=== PATIENT | male | born 1965 | race Caucasian/White ===

== ENCOUNTER 2016-04-04 12:39 | Inpatient (IN) | payer OTHER ==
[~2016-04-04] VITALS: Ht 170.2 cm; Wt 84.5 kg
[2016-04-04] VITALS (25 sets, daily range): BP systolic 114–143; BP diastolic 68–92; PULSE 77–103; RESP 12–20; O2SAT 98–100
[~2016-04-04 12:39] MED LIST: ATEN25TA PO; Dexamethasone 4 mg/mL Inj ONE; FENT1PAT6 TRANSDERM; Glycopyrrolate 0.2 mg/mL 5 mL Inj ONE; HYDR-4003 PO; Neostigmine 1 mg/mL 5 mL Inj ONE; OXYC10TA8 PO; Ondansetron 2 mg/mL 2 mL Inj ONE; Propofol 10,000 mCg/mL 20 mL Inj ONE; Rocuronium 10 mg/mL 5 mL Inj ONE; Succinylcholine Chloride 20 mg/mL 5 mL Inj ONE
[2016-04-04] MEDS ORDERED: Lactated Ringer's 1,000 ML IV ONE ×2 (14:15→14:32)
[2016-04-04] MEDS ORDERED: metroNIDAZOLE 500 mg/100 mL NS Premix IV ONE (14:39)
[2016-04-04] MEDS ORDERED: CeFAZolin 2 Gm/50 mL D5W Duplex Bag IV ONE (14:39)
--- NOTE | 2016-04-04 14:41 | PCM.HPANE ---
Patient Data Surgeon Admitting Provider: Attending Provider:Fuad Ovalles MD Primary Care Physician:Ibis Other Provider:Ruiz Rodriguez Anesthesia Reason for Visit Anastamotic Leak Ht/WT & BMI Height (Feet): 5 Height (Inches): 7 Weight (Kilograms): 88.8 Body Mass Index 30.00 Allergies Coded Allergies: No Known Drug Allergies (Verified Allergy, Unknown, 03/03/16) Past Anesthesia History Anesthesia History: Denies:: Abnormal Airway (hx exc vocal cord polyp), Anesthesia Reactions, Difficult Intubation, Fam Anesthesia Reaction, Fam Malignant Hypertherm, Malignant Hyperthermia Diabetes History Hx Diabetes?: No MRSA MRSA: No Medications Hypertension Medication: Yes Home Meds Incl Beta Fariba: Yes Previous Beta Fariba Dose >24: Previous Dose <24 Hours Reported Medications Fentanyl 12.5 mcg/hr Patch 1 Each [id number] Mcg TRANSDERM Q3D #10 PATCH Ref 0 03/25/16 oxyCODONE 10 Mg Cmnncj06-03 Mg PO Q4H PRN For Pain #100 TABLET Ref 0 03/25/16 Atenolol 25 Mg Hbhprv90 Mg PO DAILY #30 TABLET Ref 0 01/24/16 Hydrocodone-Acetaminophen 5-325 mg 1 Each Tablet1-2 Tablet PO Q4H PRN For Pain # 100 TABLET Ref 0 12/06/15 Discontinued Reported Medications Trazodone 50 Mg Svzrde62 Mg PO HS Ref 0 04/03/16 Lactulose 10 Gm/15 Ml Relpmmkk39 Ml PO BID PRN For Constipation #480 03/25/16 Ciprofloxacin (Cipro)500 Mg Wcyoiq914 Mg PO BID #8 TABLET Ref 0 03/25/16 Tamsulosin (Flomax)0.4 Mg Capsule0.4 Mg PO DAILY #30 CAPSULE Ref 0 03/25/16 Aspirin EC 500 Mg Tablet.dr500 Mg PO DAILY #1 BOTTLE Ref 0 03/04/16 History History of ENT Problems?: Yes HEENT History: Denies:: Abnormal Airway (hx exc vocal cord polyp) Difficult Intubation Dysphagia Hearing Problem Hx of Heart Problems?: Yes Cardiovascular History: Positive for:: Hypertension (HYPERLIPIDEMIA) Denies:: AICD Atrial Fibrillation Chest Pain Pacemaker Valvular Heart Disease Hx of Respiratory Problem?: No Respiratory History: Denies:: Asthma COPD Cough Hemoptysis Pneumonia Tuberculosis Use of C-PAP Machine Hx Neurologic Problems?: No Neurological History: Denies:: CVA Dementia Multiple Sclerosis Parkinson's Disease Seizures Hx of GI Problems?: Yes Gastrointestinal History: Positive for:: Gastroesphageal Reflux Rectal Bleeding (hx rectal ca- loop ileostomy done) Denies:: Cirrhosis Diverticulitis Hiatal Hernia Hx of Problems?: Yes Other Pertinent History: pt concerned regarding current air in bladder Male Hx: Denies:: Prostate Problems Scrotal Mass Testicular Surgery Skin History: Denies:: History Skin Disorders? Pressure Ulcers Hx Musculoskeletal Problems?: No Musculoskeletal History: Denies:: Joint Replacement Hx of Psycho/Social Problems?: Yes Psycho Social History: Positive for:: Anxiety Hx Depression Hx Surgeries?: Yes (appy, vocal cord polyp, loop ileostomy, portacath) Hx Any Other Health Problems?: Yes Other History: Positive for:: Cancer (RECTAL CA) Denies:: Endocrine Disease Hospitalization Thyroid Disease History Blood Transfusions: Denies:: Blood Transfusions Hx Diabetes: No Hx Alcohol Use: Yes Smoking Status: Current Every Day Smoker Have You Smoked inLast 12 mo: Yes (TRYING TO QUIT) Stop/Bang S-Snoring: Do You Snore Loudly: No T-Tired: feel tired, fatigued: No O-Obsered: Observed not breath: No P-Blood Pressure: treated: Yes B- Body Mass Index > 35 kg/m2: No A- Age over 50: Yes N- Neck Large Circumference: No G- Gender Male: Yes VERENICE Total Score: 3 VERENICE Risk Assessment: High Risk, =/>3 Yes Risk Assessment Category Category 1A: Patient has history of documented sleep apnea, and HAS NOT received any narcotic, sedative or anesthesia administration during this stay. Category 1B: Patient has history of documented sleep apnea, and HAS received any narcotic , sedative or anesthesia administration during this stay Category 2: Patient has SUSPECTED Obstructive Sleep Apnea, and HAS received any narcotic , sedative or anesthesia administration during this stay. Category 3: Patient has SUSPECTED Obstructive Sleep Apnea and HAS NOT received narcotic, sedative or anesthesia administration during this stay. Category 4: Outpatient in Procedural Areas with known sleep apnea or who screen positive for High Risk via the STOP/BANG questionnaire. Exam Exam Vital Signs Vital Signs Date Time Temp Pulse Resp B/P Pulse Ox O2 Delivery O2 Flow Rate FiO2 04/04/16 13:16 36.2 81 18 120/71 98 Room Air General Appearance: Moderate Distress HEENT/AIRWAY: MP 2 Lungs: Clear to Auscultation, Normal Air Movement Heart: Exam Unremarkable, Regular Rate/Rhythm, No Murmurs/Rubs/Gallops Plan Impression Patient chart reviewed, patient interviewed and anesthestic plan with risks, benefits, and alternatives discussed, and informed consent obtained. NPO Status: mn ASA Physical Status: ASA3 Severe Disease Anesthetic Plan: GA Bene/Risks/Altern/Consents: Yes HP Complete Prior to Induction: Yes Other Patient refuses epidural for post-op analgesia. He also currently states that only fentanyl has been effective in treating his pain. He has a fentanyl patch. Osmel Gage MD Apr 04, 2016 14:12
[2016-04-04] MEDS ORDERED: 0.9% Sodium Chloride 1,000 ML IV ONE (15:00)
[2016-04-04] MEDS ORDERED: Lactated Ringer's 500 ML IV PRN (15:32)
[2016-04-04] MEDS ORDERED: Lactated Ringer's 1,000 ML IV SCH (15:32)
[2016-04-04] MEDS ORDERED: MetoCLOpramide 5 mg/mL 2 mL Inj IVPUSH PRN ×2 (15:35→17:45)
[2016-04-04] MEDS ORDERED: EPHEDrine Sulfate 50 mg/mL Inj IM PRN (15:35)
[2016-04-04] MEDS ORDERED: Phenylephrine 10,000 mCg/mL Inj IVPUSH PRN (15:35)
[2016-04-04] MEDS ORDERED: hydrALAZINE 20 mg/mL Inj IVPUSH PRN (15:35)
[2016-04-04] MEDS ORDERED: Labetalol 5 mg/mL 4 mL Inj IV PRN (15:35)
[2016-04-04] MEDS ORDERED: Atropine 0.4 mg/mL Inj IVPUSH PRN (15:35)
[2016-04-04] MEDS ORDERED: hydrOXYzine Inj 25 MG/1 mL SDV IM PRN (15:35)
[2016-04-04] MEDS ORDERED: Ondansetron 2 mg/mL 2 mL Inj IVPUSH PRN (15:35)
[2016-04-04] MEDS ORDERED: EPHEDrine Sulfate 50 mg/mL Inj IVPUSH PRN (15:35)
[2016-04-04] MEDS ORDERED: Bupivacaine Liposome 1.3% 20 mL Inj ONE (15:55)
[2016-04-04] MEDS ORDERED: Acetaminophen IV 1,000 MG in IV Premix 1 EACH IV ONE (16:35)
[2016-04-04] MEDS ORDERED: HYDROmorphone 0.5 mg/0.5 mL iSecure Syringe IVPUSH PRN (17:45)
[2016-04-04] MEDS ORDERED: HYDROmorphone PCA 0.2 mg/mL 30 mL Inj IV PRN (17:45)
--- NOTE | 2016-04-04 17:59 | PCM.ANEP1 ---
Post Anesthesia Phase 1 PACU Phase 1 Assessment Vital Signs Vital Signs Date Time Temp Pulse Resp B/P Pulse Ox O2 Delivery O2 Flow Rate FiO2 04/04/16 13:16 36.2 81 18 120/71 98 Room Air Anesthetic Administered: GA Level of Alertness: Sleepy, easy to arouse BRAGG's with Equal Strength: Yes Pain: No Nausea or Vomiting: No Lungs: Clear to Auscultation, Normal Air Movement Dermatome Level: Full Sensation Osmel Ramachandran MD Apr 04, 2016 17:59
--- NOTE | 2016-04-04 17:59 | PCM.ANEP2 ---
Post Anesthesia Evaluation ASA/CMS Post Anesthesia VS in Patient's Normal Range?: Yes Resp Stable; Airway Patent?: Yes CV Function & Hydration Stable: Yes Mental Status Recovered?: Yes Pain control Satisfactory?: Yes N/V Control Satisfactory?: Yes Osmel Ramachandran MD Apr 04, 2016 17:59
--- NOTE | 2016-04-04 18:09 | PCM.SURGOP ---
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 Garcia on March 04. The anastomosis was tested for leak with air intraoperatively, which was negative. Postoperatively, he did not do well. He had minimal bowel movement in the hospital, but was passing gas. At home, he had to use both hands inside the anus to manipulate tissue to have small amounts of bowel movement. He also developed pneumaturia. Urine culture was negative. He had a leukocytosis of 18,000. He was having low-grade fevers and severe pelvic pain. She had a CT scan of the abdomen and pelvis, which showed free intra-abdominal air, significant bladder air, and several intraloop gas and fluid collections. After discussion of risks and benefits, he agreed to proceed with exploratory laparotomy, possible ileostomy, possible colostomy. Findings: On digital rectal exam, the anastomotic dehiscence could be palpated. Proctoscopy revealed no evidence of proximal descending colon in communication with the rectum. The pelvis was full of stool. There were dense intraloop small bowel adhesions, and several loops of small bowel densely adherent to the bladder, which was very inflamed externally. Upon mobilizing one of the small bowel loops, a chronic appearing sinus tract was appreciated from the small bowel, although no bladder fistula could be definitively identified. Limited small bowel resection was performed with anastomosis. The descending colon was mobilized, and the distal end was resected, creating a new descending colostomy. Procedure Details After smooth induction of general endotracheal anesthesia, he was placed in the supine position with both arms out. A Hale catheter was placed, yielding clear yellow urine. Digital rectal exam was performed. This revealed that approximately 2-3 cm beyond the anal verge, there was an easily palpable firm circumferential ridge of tissue, consistent with the dehisced and inflamed rectal anastomosis. Rigid proctoscopy was performed. The descending colon was not in communication with the rectal stump, and the pelvis was full of stool. The abdomen was then prepped and draped in wide sterile fashion. A procedural pause was performed according to the SCOAP checklist, and all were found to be in agreement. His previous low midline laparotomy was reopened sharply and extended up to the umbilicus. Dissection was carried down with electrocautery until the midline fascia was incised and the peritoneal cavity was entered safely. There was some turbid yellowish fluid in the pelvis. The bladder was palpable, and was very inflamed and abnormal-appearing externally. There were interloop adhesions involving the distal small bowel, which were taken down using a combination of sharp and blunt dissection. As one loop of small bowel was mobilized off the bladder, it was densely adherent, and as it came off the bladder, there were chronic appearing sinus tracts emanating from the small bowel. A clear-cut fistula on the bladder side could not be identified. There was a chronic abscess cavity between loops of small bowel in the right lower quadrant. Blunt dissection down along the left pelvic sidewall revealed a large abscess cavity containing stool. The small bowel was mobilized until a limited small bowel resection could be performed using 2 separate firings of the SHY 75 mm stapler with a blue load. The small bowel was sent for permanent pathology, only approximately 2-3 cm was resected. An anastomosis was created a short while later. In the meantime, pelvic dissection was performed, mostly bluntly, until the descending colon stump was brought out from the pelvis. It was very adherent to the bladder. It is possible that a very small amount of distal descending colon was left on the bladder. The ragged edge of the descending colon was very decompressed, forming what looked like a long sinus tract. The distal descending colon was resected using another firing of the SHY 75 mm stapler with a blue load, and that was sent for permanent pathology. Stool was evacuated from the pelvis, and the pelvis was irrigated and suctioned. Small bowel anastomosis was performed in a [id number] fashion using another firing of the SHY 75 mm stapler with a blue load, and the enterotomies were closed with a TA 60 mm stapler with a blue load. The crotch of the anastomosis was reinforced using a 3-0 silk Lembert suture. The descending colon was able to reach up to the abdominal wall for colostomy without tension. A circular skin incision was made in the left lower quadrant. A muscle-splitting incision was made through the rectus abdominous muscle, and the descending colon was brought out through that incision. The pelvis was again irrigated and suctioned. A 19 Gabonese round ABRIL drain was brought out through separate incision in the right lower quadrant, positioned in the pelvis , and secured to the skin with a 3-0 nylon stitch. The midline fascia was closed using running looped 0 PDS suture 2. Liposomal bupivacaine was instilled into the fascia and subcutaneous tissues. The skin was closed loosely with rancho. The descending colostomy was then matured by excising the staple line using electrocautery. The mucocutaneous junction was approximated using interrupted 0 Vicryl sutures circumferentially. A colostomy appliance was applied. At the end of the case all needle and sponge counts were correct 2. The patient was awakened from anesthesia without difficulty, and taken to the recovery room in satisfactory condition, having tolerated the procedure well. Complications There were no periprocedural complications identified. Surgical Specimen Removed: Yes Specimen sent to Pathology: Yes Surgical Specimen description: Small bowel. Distal descending colon. Anesthetic Plan: GA Grafts, Implants: None Output, Estimated Blood Loss: 100 Blood Administration during mclain: No Drains: ABRIL Drain #1 Catheters: Urethral 2 Way Hale copies to: Remy Garcia MD, Joshua D MD Apr 04, 2016 17:59
[2016-04-04] MEDS: fentaNYL-PF 50 mCg/mL 2 mL Inj IVPUSH PRN ×6 (18:29→19:35)
[2016-04-04] MEDS: HYDROmorphone 1 mg/mL Inj IVPUSH PRN ×5 (18:31→20:21)
[2016-04-04 18:44] LABS: APPEARANCE,URINE CLEAR (CLEAR,HAZY); COLOR,URINE YELLOW (YELLOW); PH,URINE 7.5 (5.0-8.0)
[2016-04-04 18:45] LABS: OCCULT BLOOD,URINE NEGATIVE (NEGATIVE); UROBILINOGEN,URINE NORMAL (NORMAL)
[2016-04-04] MEDS ORDERED: fentaNYL-PF 50 mCg/mL 2 mL Inj ONE (21:25)
[2016-04-04] MEDS: metroNIDAZOLE Inj 500 MG in IV Premix 1 EACH IV SCH ×2 (22:00→23:07)
[2016-04-04] MEDS ORDERED: fentaNYL-PF 50 mCg/mL 2 mL Inj IVPUSH PRN ×2 (22:05)
[2016-04-04] MEDS: Acetaminophen IV 1,000 MG in IV Premix 1 EACH IV SCH (22:12)
[2016-04-04] MEDS: Dextrose 5% Lactated Ringer's 1,000 ML IV SCH (22:18)
[2016-04-04] MEDS: FENTANYL PCA IV PRN (22:30)
[2016-04-04] MEDS: Famotidine Inj 20 MG in IV Premix 1 EACH IV SCH (22:45)
[2016-04-05] VITALS (7 sets, daily range): BP systolic 124–147; BP diastolic 74–83; PULSE 71–82; RESP 16–18; O2SAT 96–100
[2016-04-05] MEDS: Heparin 5,000 Unit/mL Inj SUBQ SCH ×3 (01:38→16:20)
[2016-04-05] MEDS: Acetaminophen IV 1,000 MG in IV Premix 1 EACH IV SCH ×4 (04:10→23:57)
[2016-04-05 06:06] LABS: BASOPHILS % (AUTO) 0.1 % (0-3); EOSINOPHILS % (AUTO) 0 % (0-5); Mean Corpuscular Hemoglobin 30.6 pg (27.0-35.0); Mean Corpuscular Volume 96.6 fL (81-100); Platelet Count 580 bil/L (150-400)
[2016-04-05] MEDS: FENTANYL PCA IV PRN ×3 (07:39→19:38)
[2016-04-05] MEDS: Dextrose 5% Lactated Ringer's 1,000 ML IV SCH ×3 (07:48→18:39)
[2016-04-05] MEDS: metroNIDAZOLE Inj 500 MG in IV Premix 1 EACH IV SCH ×3 (07:49→21:41)
[2016-04-05] MEDS: Famotidine Inj 20 MG in IV Premix 1 EACH IV SCH ×2 (08:16→20:19)
[2016-04-05] MEDS: levoFLOXacin Inj 750 MG in IV Premix 1 EACH IV SCH (08:18)
[2016-04-05] MEDS: Polyethylene Glycol (PEG) 17 Gm Powder PO SCH (08:20)
[2016-04-05] MEDS ORDERED: Influenza (Adult) Vaccine 0.5 mL Syringe IM ONE (08:30)
[2016-04-05] MEDS ORDERED: 0.9% Sodium Chloride 250 ML ONE (10:15)
--- NOTE | 2016-04-05 10:29 | PROG NOTE ---
[address] [address] PROGRESS NOTE PATIENT: HUE BUSTOS : 1965 MR#: [id number] ADMIT: 04/04/2016 JOB ID: [id number] DATE: 04/05/2016 SUBJECTIVE: Postop day one. The patient is sleeping but his tells me that he is feeling well. He is afebrile, not tachycardic, with a normal blood pressure. His drain output has been 160 since the operation. His nasogastric tube remains in place but is not putting much out. Hale is in place and per Dr. Ovalles' note will stay through the weekend. The patient is not examined as he is asleep. His white count is 12.9, his hematocrit is 25.6, electrolytes are normal. Albumin is 2.8. IMPRESSION AND PLAN: Doing well. I will come back later when he is awake and examine him. For now we will leave his NG tube in. Continue him on the levofloxacin and metronidazole that haveu been ordered by Dr. Ovalles.
[2016-04-05] MEDS: Ondansetron 2 mg/mL 2 mL Inj IVPUSH PRN (23:54)
[2016-04-06] VITALS (9 sets, daily range): BP systolic 138–152; BP diastolic 71–83; PULSE 76–87; RESP 16–18; O2SAT 95–99
[2016-04-06] MEDS: Heparin 5,000 Unit/mL Inj SUBQ SCH ×3 (00:20→18:14)
[2016-04-06] MEDS: Dextrose 5% Lactated Ringer's 1,000 ML IV SCH ×3 (02:31→21:15)
[2016-04-06] MEDS: FENTANYL PCA IV PRN ×3 (04:53→21:46)
[2016-04-06] MEDS: metroNIDAZOLE Inj 500 MG in IV Premix 1 EACH IV SCH ×3 (05:44→22:30)
[2016-04-06] MEDS: Polyethylene Glycol (PEG) 17 Gm Powder PO SCH (07:43)
[2016-04-06] MEDS: Famotidine Inj 20 MG in IV Premix 1 EACH IV SCH ×2 (09:05→20:30)
[2016-04-06] MEDS: Ondansetron 2 mg/mL 2 mL Inj IVPUSH PRN (09:18)
[2016-04-06] MEDS: levoFLOXacin Inj 750 MG in IV Premix 1 EACH IV SCH (09:38)
[2016-04-06] MEDS ORDERED: 0.9% Sodium Chloride 250 ML ONE (14:43)
--- NOTE | 2016-04-06 16:00 | PROG NOTE ---
[address] [address] PROGRESS NOTE PATIENT: HUE BUSTOS : 1965 MR#: [id number] ADMIT: 04/04/2016 JOB ID: [id number] DATE: 04/06/2016 SUBJECTIVE: The patient is postop day two, end-colostomy with pelvic cleanout. He remains afebrile, hemodynamically stable. He, and particularly his , are quite anxious about possible things going wrong. He reports some muscle spasm in his right leg and is asking to be medicated for this. He feels that this is related to his chronic back problems that were exacerbated at his last operation during the hospitalization. His nasogastric tube is not putting that much out, but he does not have much output in his ostomy either. OBJECTIVE: His abdomen is soft, mildly distended. Incision is in good shape. LABORATORY DATA: There are no labs today. IMPRESSION AND PLAN: Doing well. I should mention that his Maikol-Caruso drainage is serous and was 170 over the previous 24 hours. There are no signs of complications. He did have a little bit of blood late this morning in his NG tube and I have added pantoprazole to his H2 ulisses. I have reviewed his current anatomical setup with his , discussed options in terms of pulling the NG tube or not, and per his preference we will leave the NG tube in place rather than risk further distention and/or having to have it replaced. I will order some IV Ativan p.r.n. for his muscle spasms. Also his pain control could be better and I will add a small continuous dose through his fentanyl FINISHED GOODS STOCK CLERK. We talked about having a longer-acting narcotic that is not quite so fat-soluble but he and his say that he did not tolerate either Dilaudid or morphine. I will leave him on the fentanyl FINISHED GOODS STOCK CLERK with 10 mcg/hour continuous rate.
[2016-04-06] MEDS ORDERED: Pantoprazole 4 mg/mL 10 mL Inj IVPUSH ONE (16:15)
[2016-04-07] VITALS (7 sets, daily range): BP systolic 146–152; BP diastolic 81–96; PULSE 76–84; RESP 14–18; O2SAT 96–99
[2016-04-07] MEDS: Heparin 5,000 Unit/mL Inj SUBQ SCH ×3 (01:30→16:36)
[2016-04-07] MEDS: FENTANYL PCA IV PRN ×3 (03:50→17:54)
[2016-04-07] MEDS: metroNIDAZOLE Inj 500 MG in IV Premix 1 EACH IV SCH ×3 (04:54→22:32)
[2016-04-07 05:43] LABS: BASOPHILS % (AUTO) 0.4 % (0-3); EOSINOPHILS % (AUTO) 7.7 % (0-5); MONOCYTES % (AUTO) 10.9 % (4-12); Mean Corpuscular Hemoglobin 30.4 pg (27.0-35.0); Mean Corpuscular Volume 95.6 fL (81-100); NEUTROPHILS % (AUTO) 73.1 % (40-74); Platelet Count 558 bil/L (150-400)
[2016-04-07] MEDS: Polyethylene Glycol (PEG) 17 Gm Powder PO SCH (08:02)
[2016-04-07] MEDS: Pantoprazole 4 mg/mL 10 mL Inj IVPUSH SCH (08:28)
[2016-04-07] MEDS: Famotidine Inj 20 MG in IV Premix 1 EACH IV SCH ×2 (08:29→19:49)
[2016-04-07] MEDS: Dextrose 5% Lactated Ringer's 1,000 ML IV SCH ×2 (08:38→19:42)
[2016-04-07] MEDS: levoFLOXacin Inj 750 MG in IV Premix 1 EACH IV SCH (08:40)
--- NOTE | 2016-04-07 11:26 | PCM.PNSURG ---
Subjective Date of Service: Apr 07, 2016 Date of Service: Apr 07, 2016 Visit Information: Reason for Visit Anastamotic Leak Surgery/Surgery Date Post-Op Day # 3 Date of Admission: Apr 04, 2016 at 20:13 Hospital Day #4 Subjective: Patient seen awake in bed with at side. Complains of pain around the area of the incision, especially with coughing. Fentanyl AIR BOATSWAIN with continuous and on demand dosing is keeping him comfortable. No nausea. NG in place, currently nothing by mouth. States he is using the IS. Was able to stand at bedside with a walker but feels very weak. Had some bloody output in the NG tube yesterday, states it is less today after starting IV Protonix. Gastrointestinal: No N/V Pain Management: AIR BOATSWAIN with Basal Postop Activity: Other (as above) Objective Vital Sign- Last 8 Hours Date Time Temp Pulse Resp B/P Pulse Ox O2 Delivery O2 Flow Rate FiO2 04/07/16 05:25 36.4 76 18 152/96 98 Room Air Intake and Output- Last 8 Hour 04/07/16 Cumulative From/Thru 07:00 04/03/16 18:08 - 04/07/16 05:46 Intake Total 1090 ml 9046 ml Output Total 6520 ml Balance 1090 ml 2526 ml Intake Oral 0 ml IV Total 1090 ml 9046 ml Output Urine Total 4650 ml Gastric Drainage Total 1300 ml Drainage Total 370 ml Estimated Blood Loss 200 ml # Bowel Movements 0 General: Alert, Oriented X3, Cooperative, No Acute Distress Lungs: Clear to Auscultation Heart: Regular Rate/Rhythm Abdomen: Soft, Appropriately tender, Non-distended, Ostomy pink & viable ( scant amount of sanguinous fluid in bag) SURGICAL WOUND : Wound General Appearence: Tuyet, Intact, Well Approximated, No Erythema, Other (minimal dried sanguinous discharge on his postsurgical dressing.) Dressing & Drainage Status: Dressing Removed (excellent appearance of lower abdominal midline incision) Wound Drainage Type: ABRIL Drain #1 (serosanguineous drainage present. 130 mL yesterday.) Neuro: Normal Speech Catheters: Urethral 2 Way Hale (with clear yellow urine present.) Result Diagram: 04/07/1651404/07/1615 Additional Information: 1800 mL of urine output today. NG output 1250 mL yesterday, 700 mL today. Mostly dark green liquid, with scant blood tinged fluid after patient coughs. Assessment & Plan Impression Postop day #3 s/p Rigid proctoscopy, exploratory laparotomy, lysis of adhesions , takedown of small bowel to the bladder fistula, small bowel resection with anastomosis, descending colostomy. Other diagnoses: Status post laparoscopically assisted low anterior resection with primary anastomosis and laparoscopic takedown of splenic flexure on 03/04/2016 for stage III rectal cancer status post neoadjuvant chemoradiation therapy. 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 Continue nothing by mouth status and NG tube until decreased output. Discussed with Dr. Garcia. Continue IV fluids. Pain control through AIR BOATSWAIN. Continue IV H2 ulisses and PPI. Continue IS use. Continue activity, to include ambulation, as able. On Hale for At Least 1 Week. A.m. labs ordered. VTE Prophylaxis: Sub-Q Heparin (Unfractionated) Resuscitation Status: CPR: Attempt Resuscitation Stephanie Lezama PA-C Apr 07, 2016 11:26
--- NOTE | 2016-04-07 14:54 | PROG NOTE ---
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 He underwent neoadjuvant chemoradiation, followed by surgical resection with primary reanastomosis on March 04, 2016. Subsequently, he has had severe abdominal and back pain. CT imaging on April 03, 2016, showed moderate pneumoperitoneum with perihepatic gas beneath the right hemidiaphragm and scattered foci of free air throughout the abdomen. There was no definite free fluid. Postsurgical changes of prior low anterior resection with end-to-end anastomosis were identified. To the right at the anastomosis there was suspected extraluminal gas suspicious for a leak. He was emergently hospitalized and underwent surgical management with Dr. Fuad Ovalles on April 04, 2016, for management of colorectal anastomotic dehiscence, pelvic abscess, possible small bowel to bladder fistula, and interloop adhesions. He had lysis of adhesions, takedown of small bowel to the bladder fistula, small bowel resection with anastomosis and descending colostomy. He still has a couple drains with small amount of sanguineous drainage present. Pain control is much improved, although he notes postoperative incisional pain, which he feels is significantly better than his preoperative discomfort. He has been afebrile. He is on broad-spectrum antibiotic coverage with Levaquin 750 mg IV daily and metronidazole 500 mg IV every 8 hours. OBJECTIVE: Vitals: T 36.4, P 76, R 18, BP 152/96. HEENT: Conjunctivae slightly pale. Mucous membranes moist. No oral lesions. Nodes: No adenopathy in the neck or axilla. Chest: Decreased at the bases. Cardiac exam: Regular rate and rhythm with normal S1, S2. Abdomen: Soft. Surgical incision is dressed and clean. Ostomy site in the left lower quadrant does not have any gastrointestinal contents or gas at this time. Extremities: Trace pedal edema, 2+ distal pulses. No calf tenderness. Neuro: Alert and cooperative. Mild generalized weakness but without gross focal deficits. LABORATORIES: WBC 8.1, hemoglobin 8.2, hematocrit 25.8%, platelets 558,000. Sodium 139, potassium 4.0, BUN 5, creatinine 0.65. Glucose 105. AST 7, ALT five, alkaline phosphatase 24. 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 He had a postoperative anastomotic leak, requiring surgical repair three days ago. At exploratory laparotomy, he underwent lysis of adhesions and takedown of small bowel to the bladder fistula and small bowel resection with anastomosis as well as descending colostomy. It is unclear if he can have a future reanastomosis, but I will speak further with the surgical team later this week. Await pathology. He will need further time to heal before scheduled adjuvant chemotherapy with oral Xeloda and intravenous oxaliplatin. At the earliest, anticipate initiation of chemotherapy in 2-3 weeks, but it may be 3-4 weeks depending on the patient's healing process. Given surgical findings, agree with broad-spectrum IV antibiotic coverage as ordered.
[2016-04-07] MEDS ORDERED: 0.9% Sodium Chloride 250 ML ONE (19:38)
[2016-04-08] VITALS (8 sets, daily range): BP systolic 121–152; BP diastolic 78–88; PULSE 74–82; RESP 14–18; O2SAT 95–98
[2016-04-08] MEDS: FENTANYL PCA IV PRN ×2 (00:54→09:13)
[2016-04-08] MEDS: Heparin 5,000 Unit/mL Inj SUBQ SCH ×3 (00:55→17:53)
[2016-04-08] MEDS ORDERED: TPN Per Pharmacist XX ONE (07:00)
[2016-04-08 07:03] LABS: BASOPHILS % (AUTO) 0.3 % (0-3); EOSINOPHILS % (AUTO) 8.7 % (0-5); MONOCYTES % (AUTO) 9.4 % (4-12); Mean Corpuscular Hemoglobin 30.3 pg (27.0-35.0); Mean Corpuscular Volume 94.2 fL (81-100); NEUTROPHILS % (AUTO) 73.4 % (40-74); Platelet Count 569 bil/L (150-400)
[2016-04-08] MEDS: Dextrose 5% Lactated Ringer's 1,000 ML IV SCH (07:54)
[2016-04-08] MEDS: metroNIDAZOLE Inj 500 MG in IV Premix 1 EACH IV SCH ×3 (07:55→22:06)
[2016-04-08] MEDS: Polyethylene Glycol (PEG) 17 Gm Powder PO SCH (08:30)
[2016-04-08] MEDS: Famotidine Inj 20 MG in IV Premix 1 EACH IV SCH (08:43)
[2016-04-08] MEDS: Pantoprazole 4 mg/mL 10 mL Inj IVPUSH SCH (08:43)
[2016-04-08] MEDS: levoFLOXacin Inj 750 MG in IV Premix 1 EACH IV SCH (09:16)
--- NOTE | 2016-04-08 11:01 | PROG NOTE ---
[address] [address] PROGRESS NOTE PATIENT: HUE BUSTOS : 1965 MR#: [id number] ADMIT: 04/04/2016 JOB ID: [id number] DATE: 04/08/2016 SUBJECTIVE: The patient is seen in followup. He continues to feel a little bit better. Today, he feels hungry and thirsty. His pain is mostly controlled. He has not had any nausea. He has not had any anal drainage. He does think there has been a tiny amount of flatus into his colostomy. OBJECTIVE: Temperature 36.7, pulse 82, blood pressure 152/88, saturation 97% on room air. General: He is sitting up in bed, in no acute distress. Chest: Clear. Heart: Regular rate and rhythm. No murmurs. Abdomen is flat and soft. His ABRIL drain has serosanguineous drainage, slightly turbid, 15 cc overnight. His colostomy is intact with no significant output. There is no erythema of the abdominal wall. He is minimally tender to palpation. The Hale catheter has clear yellow urine. Nasogastric tube has a light green drainage. NG output overnight was 400 cc, yesterday was 2025 cc. LABORATORIES: White count is 7.9, hematocrit 26.1, platelets 569. Creatinine 0.62, glucose 102, albumin 2.9. ASSESSMENT AND PLAN: A 50-year-old man with anastomotic leak after low anterior resection for rectal cancer following neoadjuvant chemoradiotherapy. He is now postoperative day four, status post takedown of his anastomosis, descending colostomy, small bowel resection with anastomosis, lysis of adhesions, drainage of pelvic abscess. He is doing well clinically. I am not sure how long it will take for him to be able to eat, but since he is malnourished with an albumin of 2.9 and has not had meaningful protein calorie intake recently, we will start TPN today. His nasogastric tube probably can come out soon, but will wait and see what the output is during the day and make a decision about that later today. LEAD PONY RIDER will be continued. Broad-spectrum antibiotics will be continued. Hale catheter should be continued for seven days.
--- NOTE | 2016-04-08 12:07 | PCM.PHAPRO ---
Progress TPN Management: -pt has been npo x 4 days, s/p takedown of his anastamosis, lysis of adhesions, drainage of pelvic abscess -pt has had significant weight loss over the past year, 28 kg -macronutrients per dietary recommendation will be initiated with Dextrose 175gm , AA 45gm, Lipids 10gm -famotidine ivpb has been discontinued and added to the TPN -IV fluids will be decreased to tko when TPN is hung this evening at 2100 -formula for TPN #1 at 2100 tonight: PARENTERAL NUTRITION ORDERS 1 - Standard Hang Time: 2100 Substrates Total kcal: 875 AMINO ACIDS 45 g DEXTROSE 175 g Total Volume (mL): 1800 LIPIDS 10 g Sterile Water for Injection QS mL To Infuse Over (hrs): 24 Total Volume 1800 mL At at a rate of (mL/hr): 75 Additives Sodium Chloride 100 mEq "typical" daily requirements Sodium Acetate mEq Sodium 50-120mEq Potassium Chloride 50 mEq Potassium 60-120mEq Potassium Phosphate 20 mEq Phosphate 20-40mEq Calcium Gluconate mEq Magnesium 8-32mEq Magnesium Sulfate 8 mEq Calcium 9-22mEq Acetate* 80-120mEq Chloride* 80-120mEq Regular Insulin units *Depending on acid-base status Famotidine 40 mg Multivitamins 1 std dose Insulin Regimen Trace Elements 1 std dose none Thiamine mg Regular Low Intensity Subcut Folic Acid mg Regular Medium Intensity Subcut Ascorbic Acid mg Regular High Intensity Subcut Regular Insulin Infusion Other: Kathy Rasheed [facility] Apr 08, 2016 12:07
[2016-04-08] MEDS: 0.9% Sodium Chloride 250 ML IV SCH (18:17)
[2016-04-08] MEDS ORDERED: Sodium Chloride LOK Flush 10 mL Syringe IVFLUSH PRN ×2 (18:20)
[2016-04-08] MEDS ORDERED: HepLOK Flush 100 unit/mL 5 mL Inj IVFLUSH PRN (18:20)
[2016-04-08] MEDS: Total Parenteral Nutrition 1 BAG IV SCH (21:00)
[2016-04-09] VITALS (10 sets, daily range): BP systolic 130–144; BP diastolic 81–94; PULSE 71–79; RESP 16–18; O2SAT 94–100
[2016-04-09] MEDS: FENTANYL PCA IV PRN ×4 (00:18→18:27)
[2016-04-09] MEDS: Heparin 5,000 Unit/mL Inj SUBQ SCH ×3 (00:37→17:31)
[2016-04-09] MEDS: metroNIDAZOLE Inj 500 MG in IV Premix 1 EACH IV SCH ×3 (05:37→22:09)
[2016-04-09 05:50] LABS: Phosphorus 4.7 mg/dL (2.5-4.9)
[2016-04-09] MEDS: Dextrose 5% Lactated Ringer's 1,000 ML IV SCH (06:36)
[2016-04-09] MEDS: Polyethylene Glycol (PEG) 17 Gm Powder PO SCH (07:55)
[2016-04-09] MEDS: Pantoprazole 4 mg/mL 10 mL Inj IVPUSH SCH (08:06)
[2016-04-09] MEDS: levoFLOXacin Inj 750 MG in IV Premix 1 EACH IV SCH (08:06)
--- NOTE | 2016-04-09 08:21 | PROG NOTE ---
[address] [address] PROGRESS NOTE PATIENT: HUE BUSTOS : 1965 MR#: [id number] ADMIT: 04/04/2016 JOB ID: [id number] DATE: 04/09/2016 SUBJECTIVE: Hue is seen in followup. He continues to feel better. He has no nausea. He is passing some flatus into his colostomy but has not had stool yet. He is complaining of some Hale catheter discomfort and is not sure if his Hale is draining well. OBJECTIVE: Temperature 36.7, pulse 76, blood pressure 130/82, saturation 84% on room air. General: He is resting in bed in no acute distress. HEENT: Nasogastric tube has small amounts of bilious fluid. Chest is clear. Heart: Regular rate and rhythm. No murmurs. Abdomen is soft and flat. His incision is clean with no erythema. His ABRIL drain has serosanguineous drainage. The colostomy is pink with no significant output in the appliance. Bowel tones are present. : Hale catheter has fairly clear yellow urine. ASSESSMENT/PLAN: A 50-year-old man with anastomotic leak after low anterior resection for rectal cancer following neoadjuvant chemoradiotherapy. He is now status post end colostomy, small bowel resection with anastomosis, takedown of bladder fistula. He is doing well clinically. TPN was started last night. I have removed his nasogastric tube this morning. He will be kept n.p.o., but allowed to have ice chips today. TPN should be continued. We will continue the HEALTH ADMINISTRATION TEACHER for now until he has some return of bowel function. The Hale catheter will remain for at least seven days.
--- NOTE | 2016-04-09 09:03 | PROG NOTE ---
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 After neoadjuvant chemoradiation, he underwent surgical resection with primary reanastomosis on March 04, 2016. He was hospitalized with anastomotic leak, and underwent surgical repair on April 04, 2016, including lysis of adhesions, takedown of small bowel to a bladder fistula, small bowel resection with anastomosis and descending colostomy. He still has incisional pain. He has had a small amount of gas in his ostomy bag, but no stool. He has an NG tube. He denies any nausea or vomiting. NG output overnight was minimal, nonbloody. He has been afebrile, and remains on broad-spectrum antibiotic coverage with Levaquin and metronidazole. OBJECTIVE: Vitals: T 36.7, P 76, R 16, BP 130/82. HEENT: Conjunctivae slightly pale. Mucous membranes moist. NG tube in the left nares. Nodes: No adenopathy in the neck or axilla. Chest: Clear. No wheezes. Cardiac exam: Regular rate and rhythm with normal S1, S2. Abdomen: Soft, tender with minimal palpation. Surgical incision intact. Ostomy site in the left lower quadrant appears healthy. There is no gas or fecal contents in the ostomy bag at this time. Extremities: No edema. 2+ distal pulses. No calf tenderness. LABORATORIES: WBC 7.9, hemoglobin 8.4, hematocrit 26.1%, platelets 569,000. BUN 9, creatinine 0.72, glucose 117. 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 He had a T3 N1 lesion with 2/19 mesenteric lymph nodes involved by tumor at the time of surgery in early February. Postoperatively, he developed an anastomotic leak, requiring surgical repair five days ago. He now has an ostomy in the left lower quadrant. This appears healthy. He currently has an NG tube, and is not eating. He has TPN to provide nutritional needs. Monitor electrolytes closely. Await pathology from his recent surgery. We will discuss his case at [facility] today. After he heals, we will schedule him for adjuvant chemotherapy with oral Xeloda and intravenous oxaliplatin, likely 3-4 weeks from now. The patient is currently on broad-spectrum antibiotics given his surgical findings. This will be monitored by the surgical team.
--- NOTE | 2016-04-09 09:10 | PCM.PHAPRO ---
Progress TPN Management: -Macronutrients advanced today per dietary recommendation of AA 85gm, Dextrose 240gm, Lipids 40gm -electrolytes have remained stable overnight -Plan: formula for this evening, Day 2: PARENTERAL NUTRITION ORDERS 2 09-Apr-16 Standard Hang Time: 2100 Substrates Total kcal: 1556 AMINO ACIDS 85 g DEXTROSE 240 g Total Volume (mL): 1900 LIPIDS 40 g Sterile Water for Injection QS mL To Infuse Over (hrs): 24 Total Volume 1900 mL At at a rate of (mL/hr): 79 Additives Sodium Chloride 90 mEq "typical" daily requirements Sodium Acetate mEq Sodium 50-120mEq Potassium Chloride 80 mEq Potassium 60-120mEq Potassium Phosphate mEq Phosphate 20-40mEq Calcium Gluconate mEq Magnesium 8-32mEq Magnesium Sulfate 8 mEq Calcium 9-22mEq Acetate* 80-120mEq Chloride* 80-120mEq Regular Insulin units *Depending on acid-base status Famotidine 40 mg Multivitamins 1 std dose Insulin Regimen Trace Elements 1 std dose none Thiamine mg Regular Low Intensity Subcut Folic Acid mg Regular Medium Intensity Subcut Ascorbic Acid mg Regular High Intensity Subcut Regular Insulin Infusion Other: Kathy Rasheed [facility] Apr 09, 2016 09:10
--- NOTE | 2016-04-09 09:59 | PCM.PHAPRO ---
Progress Addendum: -dietary called and they do not want to advance macronutrients today. will continue with previous orders for TPN #1 Kathy Rasheed [facility] Apr 09, 2016 09:59
--- NOTE | 2016-04-09 16:34 | PATH ---
SURGICAL PATHOLOGY Attending Physician:Jalen Munoz CASE STATUS: Signed Out PATIENT NAME: HUE BUSTOS PID: [id number] : 1965 DATE COLLECTED:04/04/2016 00:00 SPECIMEN: 1: Small Intestine/Bowel, Biopsy 2: Colon, Biopsy CLINICAL HISTORY: A: SMALL BOWEL B: DESCENDING COLON ANASTOMOSIS LEAK FINAL DIAGNOSIS: 1.SMALL BOWEL: SEGMENT OF SMALL BOWEL (3.0 CM RESECTED LENGTH) WITH MODERATE ACTIVE SEROSAL INFLAMMATION. NO EVIDENCE OF MALIGNANCY. 2.DESCENDING COLON: SEGMENT OF LARGE BOWEL (11.0 CM RESECTED LENGTH) WITH MARKED ACTIVE SEROSAL INFLAMMATION. NO EVIDENCE OF MALIGNANCY. ICD10 CODE K65.9 GROSS DESCRIPTION: The specimens are received in formalin, labeled with the patient's name, and sublabeled as the following: (1) small bowel; (2) descending colon. (1) The specimen consists of an unoriented segment of small bowel (length-3.0 cm, resection margin #1 and #2 diameters-2.5 cm) with attached adipose tissue (up to 1.3 cm in depth). The resection margins are received stapled. The mucosa is cuevas with normal folds. The serosa is cuevas smooth and shiny. No nodules masses or lesions are identified. Ink code: black-resection margin. Section code: (1A) resection margin #1, longitudinally sectioned, compliance representative dealer; (1B) resection margin #2, longitudinally sectioned, compliance representative dealer; (1C) small bowel segment, serially sectioned from resection margin #1 to #2, compliance representative dealer. (2) The specimen consists of a an unoriented segment of colon (length-11.2 cm, resection margin #1 and #2 diameters-2.1 cm) and with attached adipose tissue (up to 5.2 cm in depth). The segment is received opened with resection margin #1 stapled and resection margin #2 open. The mucosa is cuevas smooth and shiny with normal folds and partially flat. No nodules, masses or lesions are identified. Ink code: black-resection margin. Section code: (2A) resection margin #1, longitudinally sectioned, compliance representative dealer; (2B) resection margin #2, longitudinally sectioned, compliance representative dealer; (2C-2E) colon segment, serially sectioned from resection margin #1 to #2, compliance representative dealer. 04/08/16 MICRO DESCRIPTION: See diagnosis. ICD-9 CODES: CPT CODES: 1: 53456 2: 98687 Electronically Signed Out Maria Del Carmen Judd MD [facility] [address], [place] [address] Technical component performed at [facility], [facility] [address], [place], [address]
[2016-04-09] MEDS: 0.9% Sodium Chloride 250 ML IV SCH ×2 (17:16→20:56)
[2016-04-09] MEDS: Total Parenteral Nutrition 1 BAG IV SCH (21:02)
[2016-04-10] VITALS (9 sets, daily range): BP systolic 136–169; BP diastolic 80–89; PULSE 80–84; RESP 14–18; O2SAT 96–100
[2016-04-10] MEDS: Heparin 5,000 Unit/mL Inj SUBQ SCH ×4 (00:23→23:38)
[2016-04-10] MEDS: FENTANYL PCA IV PRN ×2 (05:18→13:50)
[2016-04-10] MEDS: metroNIDAZOLE Inj 500 MG in IV Premix 1 EACH IV SCH ×3 (05:31→21:43)
[2016-04-10] MEDS: Dextrose 5% Lactated Ringer's 1,000 ML IV SCH (06:36)
[2016-04-10 07:06] LABS: Magnesium 2.2 mg/dL (1.6-2.6); Phosphorus 4.3 mg/dL (2.5-4.9)
[2016-04-10] MEDS: Polyethylene Glycol (PEG) 17 Gm Powder PO SCH (07:37)
[2016-04-10] MEDS: Pantoprazole 4 mg/mL 10 mL Inj IVPUSH SCH (08:55)
[2016-04-10] MEDS: levoFLOXacin Inj 750 MG in IV Premix 1 EACH IV SCH (08:55)
--- NOTE | 2016-04-10 09:37 | PROG NOTE ---
[address] [address] PROGRESS NOTE PATIENT: HUE BUSTOS : 1965 MR#: [id number] ADMIT: 04/04/2016 JOB ID: [id number] DATE: 04/10/2016 SUBJECTIVE: The patient is seen in followup. He has had a fair amount of flatus through the colostomy over the past 24 hours, but no significant stool. He has no nausea and is tolerating ice chips. He is hungry. His main complaint is bladder discomfort. OBJECTIVE: Temperature 36.4, pulse 80, blood pressure 136/80, saturation 97% on room air. General: He is resting in bed in no acute distress. Chest is clear. Heart: Regular rate and rhythm. Abdomen is soft, nondistended, minimally tender. His incision is clean with no erythema, no drainage. The ABRIL drain has scant serosanguineous drainage. The colostomy has minimal brown liquid in the appliance. Hale catheter has clear yellow urine. LABORATORIES: Creatinine 0.66, glucose 104. ASSESSMENT AND PLAN: A 50-year-old man status post exploratory laparotomy for anastomotic leak with pelvic abscess, now status post small bowel resection with anastomosis and descending colostomy. He is doing well clinically. He will be placed on a clear liquid diet today. The Hale catheter will remain in place for now. Because of his possible bladder fistula, I will arrange for a cystogram through the Hale catheter tomorrow prior to Hale catheter removal. ABRIL drain should be removed just before he leaves the hospital, but we will leave it in place for now. TPN and broad-spectrum antibiotics should be continued. His diet will be slowly advanced over the next several days. If he does well, I anticipate he will be ready for discharge around Thursday or Thursday. Tuyet should be removed from his incision before he leaves the hospital.
--- NOTE | 2016-04-10 09:52 | PROG NOTE ---
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 He was hospitalized after surgery to repair an anastomotic leak. Pain is well controlled. He notes frequent gas in his ostomy bag, and a small amount of brown liquid. His NG tube was removed last night, and he is much more comfortable. He was up walking in the levy, doing 3-4 laps last evening. No shortness of breath or chest pain. No fevers. OBJECTIVE: Vitals: T 36.4, P 80, R 17, BP 136/80. O2 saturation 97% on room air. HEENT: Conjunctivae slightly pale. Mucous membranes moist. No oral lesions. Nodes: No adenopathy in the neck or axilla. Chest: Clear. Cardiac examination: Regular rate and rhythm with normal S1, S2. Abdomen is soft. Mild tenderness. Surgical incision appears clean and dry. Ostomy site in the left lower quadrant has a small amount of brown liquid in the bag. ABRIL drain has about 5 cc of serosanguineous fluid. Extremities: No edema. 2+ distal pulses. No calf tenderness. LABORATORIES: BUN 11, creatinine 0.66, glucose 104. 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 He had a T3 N1 lesion with 2/19 mesenteric lymph nodes involved at the time of surgery in early February. Developed postoperative anastomotic leak, requiring surgical repair six days ago. He now has an ostomy in the left lower quadrant, which will likely be permanent. He has a small amount of liquid stool in the ostomy bag today, suggesting slow bowel recovery. NG tube has been removed. It may be possible to remove his ABRIL drain today. In addition, the patient is eagerly anticipating removal of his Hale catheter. Once stable, he will likely be discharged home. In 3-4 weeks, anticipate adjuvant chemotherapy with oral Xeloda and intravenous oxaliplatin. Antibiotic coverage during the remainder of the patient's hospitalization will be dependent on the surgical team.
--- NOTE | 2016-04-10 10:26 | PCM.PHAPRO ---
Progress TPN Management by Pharmacy: -electrolytes remain stable -macronutrients advanced per dietary today to AA 85gm, Dextrose 240gm, Lipids 40gm -day 3 of inpatient TPN formula for this evening: PARENTERAL NUTRITION ORDERS 3 - Standard Hang Time: 2100 Substrates Total kcal: 1556 AMINO ACIDS 85 g DEXTROSE 240 g Total Volume (mL): 1900 LIPIDS 40 g Sterile Water for Injection QS mL To Infuse Over (hrs): 24 Total Volume 1900 mL At at a rate of (mL/hr): 79 Additives Sodium Chloride 90 mEq "typical" daily requirements Sodium Acetate mEq Sodium 50-120mEq Potassium Chloride 40 mEq Potassium 60-120mEq Potassium Phosphate 10 mEq Phosphate 20-40mEq Calcium Gluconate mEq Magnesium 8-32mEq Magnesium Sulfate 8 mEq Calcium 9-22mEq Acetate* 80-120mEq Chloride* 80-120mEq Regular Insulin units *Depending on acid-base status Famotidine 40 mg Multivitamins 1 std dose Insulin Regimen Trace Elements 1 std dose none Thiamine mg Regular Low Intensity Subcut Folic Acid mg Regular Medium Intensity Subcut Ascorbic Acid mg Regular High Intensity Subcut Regular Insulin Infusion Other: Kathy Rasheed [facility] Apr 10, 2016 10:26
[2016-04-10] MEDS: Total Parenteral Nutrition 1 BAG IV SCH (21:40)
[2016-04-10] MEDS: 0.9% Sodium Chloride 250 ML IV SCH (21:43)
[2016-04-11] VITALS (8 sets, daily range): BP systolic 124–136; BP diastolic 80–84; PULSE 71–77; RESP 14–20; O2SAT 96–98
[2016-04-11] MEDS: FENTANYL PCA IV PRN ×3 (00:44→15:47)
[2016-04-11 05:34] LABS: Magnesium 2.2 mg/dL (1.6-2.6); Phosphorus 4.2 mg/dL (2.5-4.9)
[2016-04-11] MEDS: metroNIDAZOLE Inj 500 MG in IV Premix 1 EACH IV SCH ×3 (06:05→22:18)
[2016-04-11] MEDS: Dextrose 5% Lactated Ringer's 1,000 ML IV SCH (06:36)
[2016-04-11] MEDS: Pantoprazole 4 mg/mL 10 mL Inj IVPUSH SCH (08:08)
[2016-04-11 08:10] LABS: BASOPHILS % (AUTO) 0.3 % (0-3); EOSINOPHILS % (AUTO) 10.3 % (0-5); MONOCYTES % (AUTO) 13.1 % (4-12); Mean Corpuscular Hemoglobin 30.7 pg (27.0-35.0); Mean Corpuscular Volume 95.3 fL (81-100); NEUTROPHILS % (AUTO) 65.5 % (40-74); Platelet Count 503 bil/L (150-400)
[2016-04-11] MEDS: Polyethylene Glycol (PEG) 17 Gm Powder PO SCH (08:30)
[2016-04-11] MEDS: levoFLOXacin Inj 750 MG in IV Premix 1 EACH IV SCH (09:34)
[2016-04-11] MEDS: Heparin 5,000 Unit/mL Inj SUBQ SCH ×2 (09:51→17:52)
--- NOTE | 2016-04-11 10:25 | PCM.PNSURG ---
Subjective Date of Service: Apr 11, 2016 Date of Service: Apr 11, 2016 Visit Information: Reason for Visit Anastamotic Leak Surgery/Surgery Date Post-Op Day # 7 Date of Admission: Apr 04, 2016 at 20:13 Hospital Day #8 Subjective: Good control of pain using fentanyl MARKETING DATABASE ANALYST. Abdominal pain is diminishing. He is tolerating a clear liquid diet with no nausea or vomiting. Is hungry and anxious to start eating food. He had an urge to defecate and did pass a small amount of tissue per rectum last evening with some blood smeared on the toilet paper. Has had 2 episodes of soft brown stool in the colostomy bag. Is ambulating extensively in the hallway. Spoke at length with patient and his regarding his hospital course. Postop General: Other (as above) Gastrointestinal: No N/V, Passing Stool (an colostomy bag) Pain Management: MARKETING DATABASE ANALYST with Basal Postop Activity: Ambulating Independently, Ambulating in Daniels Objective Vital Sign- Last 8 Hours Date Time Temp Pulse Resp B/P Pulse Ox O2 Delivery O2 Flow Rate FiO2 04/11/16 06:12 16 97 04/11/16 03:00 14 96 Intake and Output- Last 8 Hour 04/11/16 Cumulative From/Thru 07:00 04/03/16 18:08 - 04/11/16 06:11 Intake Total 3275 ml 18252 ml Output Total 1665 ml 47108 ml Balance 1610 ml 28 ml Intake Oral 738 ml 1338 ml IV Total 693 ml 82019 ml TPN/PPN 1844 ml 3965 ml Output Urine Total 1500 ml 87866 ml Stool Total 150 ml 150 ml Gastric Drainage Total 5125 ml Drainage Total 15 ml 428 ml Estimated Blood Loss 200 ml # Bowel Movements 0 0 General: Alert, Oriented X3, Cooperative, No Acute Distress Lungs: Clear to Auscultation Heart: Regular Rate/Rhythm Abdomen: Soft, Appropriately tender (improving since previous exam this week), Non-distended, Ostomy (intact, non-edematous, with small amounts of brown liquid in the bag; per patient, he has had the bag emptied twice with brown soft stool) SURGICAL WOUND : Wound General Appearence: [place], Intact, Well Approximated, Incision Healing, No Erythema, No Discharge Wound Drainage Type: ABRIL Drain #1 (cloudy serosanguineous; minimal drainage) Neuro: Normal Speech Catheters: Urethral 2 Way Hale (clear yellow fluid, good output) Result Diagram: 04/11/1644404/11/16444 Diagnostics: Cystogram just taken this morning as well as CT of the pelvis. Report pending. Additional Information: Pathology report: FINAL DIAGNOSIS: 1.SMALL BOWEL: SEGMENT OF SMALL BOWEL (3.0 CM RESECTED LENGTH) WITH MODERATE ACTIVE SEROSAL INFLAMMATION. NO EVIDENCE OF MALIGNANCY. 2.DESCENDING COLON: SEGMENT OF LARGE BOWEL (11.0 CM RESECTED LENGTH) WITH MARKED ACTIVE SEROSAL INFLAMMATION. NO EVIDENCE OF MALIGNANCY. Assessment & Plan Impression Primary diagnoses: Postop day #7 s/p Rigid proctoscopy, exploratory laparotomy, lysis of adhesions , takedown of small bowel to the bladder fistula, small bowel resection with anastomosis, descending colostomy. Other diagnoses: Status post laparoscopically assisted low anterior resection with primary anastomosis and laparoscopic takedown of splenic flexure on 03/04/2016 for stage III rectal cancer status post neoadjuvant chemoradiation therapy. 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 Anticipate advancing to soft diet either tonight or tomorrow. Continue TPN until oral intake is adequate to wean off. Pending results of pelvic CT and cystogram, will decide on Hale removal. Anticipate leaving ABRIL and rancho intact until just prior to discharge. Continue broad-spectrum IV antibiotics. Discontinue continuous dose on the MARKETING DATABASE ANALYST, continue on demand. Continue ostomy training and practice in anticipation of discharge home on Thursday or Thursday if still doing well. AM labs ordered. Pain Management: As above. VTE Prophylaxis: Sub-Q Heparin (Unfractionated) Resuscitation Status: CPR: Attempt Resuscitation Stephanie Lezama PA-C Apr 11, 2016 10:25
--- NOTE | 2016-04-11 11:10 | PCM.CONPHA ---
Objective Vital Signs Date Time Temp Pulse Resp B/P Pulse Ox O2 Delivery O2 Flow Rate FiO2 04/11/16 10:19 16 04/11/16 09:36 36.7 77 19 136/84 98 Room Air 04/11/16 06:12 16 97 04/11/16 03:00 14 96 04/10/16 23:00 16 96 04/10/16 20:05 36.6 83 17 156/88 98 Room Air 04/10/16 19:45 Supplement Oxygen 04/10/16 17:46 36.4 84 18 144/86 97 Room Air 04/10/16 17:00 17 97 04/10/16 14:25 36.3 81 18 169/89 97 Room Air 04/10/16 12:30 14 96 Intake and Output 04/09/16 04/10/16 04/11/16 00:00 00:00 00:00 Intake Total 2797 ml 2567 ml 1438 ml Output Total 3098 ml 2400 ml 2100 ml Balance -301 ml 167 ml -662 ml Weight (Kilograms): 86.900 Height (Feet): 5 Height (Inches): 7.00 Test 04/04/16 18:20 04/08/16 06:10 04/11/16 04:45 Urine Color Yellow (YELLOW) Urine Appearance Clear (CLEAR,HAZY) Urine pH 7.5 (5.0-8.0) Urine Specific [place] 1.015 (1.003-1.035) Urine Protein Negativemg/dL (NEG,TRACE) Urine Glucose (UA) Negativemg/dL (NEGATIVE) Urine Ketones Negativemg/dL (NEGATIVE) Urine Occult Blood Negative (NEGATIVE) Urine Nitrite Negative (NEGATIVE) Urine Bilirubin Negative (NEGATIVE) Urine Urobilinogen Normalmg/dL (NORMAL) Urine Leukocyte Esterase Negative (NEGATIVE) Urine RBC 0-2/hpf (0-2) Urine WBC 0-5/hpf (0-5) Urine Epithelial Cells None/hpf (NONE-MOD) Urine Crystals None seen (NONE SEEN) Urine Bacteria Few/hpf (NONE-FEW) Urine Hyaline Casts None/lpf (NONE) Urine Granular Casts None seen (NONE SEEN) Urine Waxy Casts None seen (NONE SEEN) Urine Red Blood Cell Casts None seen (NONE SEEN) Urine White Blood Cell Casts None seen (NONE SEEN) Urine Mucus None seen (None Seen) Urine Trichomonas None seen (NONE SEEN) Urine Yeast None (NONE SEEN) Urinalysis Comment None Urine Culture Reflexed Not indicated Total Bilirubin 0.2mg/dL (0.0-1.2) Aspartate Amino Transf (AST/SGOT) 9U/L (0-50) Alanine Aminotransferase (ALT/SGPT) 6U/L (0-44) Alkaline Phosphatase 23U/L (25-150) Total Protein 5.5g/dL (6.4-8.4) Albumin 2.9g/dL (3.4-5.0) White Blood Count 7.6th/mm3 (3.8-10.1) Red Blood Count 2.77mil/mm3 (4.40-5.80) Hemoglobin 8.5g/dL (13.8-17.2) Hematocrit 26.4% (41.0-50.0) Mean Corpuscular Volume 95.3fL (81-100) Mean Corpuscular Hemoglobin 30.7pg (27.0-35.0) Mean Corpuscular Hemoglobin Concent 32.2% (32.0-37.0) Red Cell Distribution Width 14.9% (12.3-15.4) Platelet Count 503bil/L (150-400) Neutrophils (%) (Auto) 65.5% (40-74) Lymphocytes (%) (Auto) 10.3% (14-46) Monocytes (%) (Auto) 13.1% (4-12) Eosinophils (%) (Auto) 10.3% (0-5) Basophils (%) (Auto) 0.3% (0-3) Sodium Level 138mEq/L (134-144) Potassium Level 4.1mEq/L (3.5-5.2) Chloride Level 104mEq/L (97-108) Carbon Dioxide Level 24mmol/L (18-29) Blood Urea Nitrogen 12mg/dL (6-24) Creatinine 0.71mg/dL (0.76-1.27) Estimat Glomerular Filtration Rate 125mL/min (>59) Glucose Level 101mg/dL (60-99) Calcium Level 8.4mg/dL (8.5-10.1) Phosphorus Level 4.2mg/dL (2.5-4.9) Magnesium Level 2.2mg/dL (1.6-2.6) Assessment/Plan Assessment/Plan PARENTERAL NUTRITION ORDERS 4 - Standard Hang Time: 2100 Substrates Total kcal: 1556 AMINO ACIDS 110 g DEXTROSE 320 g Total Volume (mL): 1900 LIPIDS 50 g Sterile Water for Injection QS mL To Infuse Over (hrs): 24 Total Volume 1900 mL At at a rate of (mL/hr): 79 Additives Sodium Chloride p mEq "typical" daily requirements Sodium Acetate mEq Sodium 50-120mEq Potassium Chloride 40 mEq Potassium 60-120mEq Potassium Phosphate 10 mEq Phosphate 20-40mEq Calcium Gluconate mEq Magnesium 8-32mEq Magnesium Sulfate 8 mEq Calcium 9-22mEq Acetate* 80-120mEq Chloride* 80-120mEq Regular Insulin units *Depending on acid-base status Famotidine 40 mg Multivitamins 1 std dose Insulin Regimen Trace Elements 1 std dose none Thiamine mg Regular Low Intensity Subcut Folic Acid mg Regular Medium Intensity Subcut Ascorbic Acid mg Regular High Intensity Subcut Regular Insulin Infusion Other: Special Instructions: To be infused via central line only. For delay or inturruption of TPN contact the pharmacist for alternative replacement solution. Signature Date: Salvador Davis [address] [place] [address] Josemanuel Tompkins Apr 11, 2016 11:10
--- NOTE | 2016-04-11 11:56 | DRSVH ---
PROCEDURE: X-RAY CYSTOGRAM IN RADIOLOGY ([id number]) INDICATIONS: bladder fistula, 7 days postop with Hale in place COMPARISON: [facility], CT, CT PELVIS WO CON, 04/11/2016, 9:01. FINDINGS: KUB: Preprocedural executive wellness programs director film demonstrates a normal bowel gas pattern. A Hale catheter is present. No suspicious abdominal calcifications. Bony structures are unremarkable. ABRIL surgical drain is no ara. There midline surgical clips and residual oral contrast material within the colon Bladder: The filled bladder appears normal in contour. Early images demonstrate no bladder wall tra beculations. No vesicoureteral reflux or to contrast extravasation. IMPRESSION: No radiographically visualized evidence of fistula Dictated by: Alfredo Cardenas M.D. on 04/11/2016 at 11:55 Approved by: Alfredo Cardenas M.D. on 04/11/2016 at 11:55
--- NOTE | 2016-04-11 17:20 | DRSVH ---
PROCEDURE: CT PELVIS WITHOUT CONTRAST ([id number]) INDICATIONS: POST CYSTOGRAM IN XRAY/ADD PER DR. HIGUERA/PGD JON TECHNIQUE: After the administration of oral contrast and introduction of diluted contrast material into the urin cleo bladder via Hale catheter, 5 mm thick sections acquired from the iliac crests to the symphysis. 5 mm coronal and sagittal reformats were then performed. For radiation dose reduction, the followin g was used: automated exposure control, adjustment of mA and/or kV according to patient size. COMPARISON: [facility], CR, XR CYSTOGRAM IN DEPT, 04/11/2016, 8:46. Formerly [facility] al, CT, CT ABD PELVIS W CON, 04/03/2016, 10:06. FINDINGS: Image quality: Excellent. Peritoneum and bowel: No free air identified in the pelvis. Postsurgical changes compatible with lef t lower quadrant colostomy formation and placement of a surgical drain in the presacral space in the lower pelvis noted interval since the prior examination. Bowel loops demonstrate normal wall thicknes s and caliber. No free fluid or air. Genitourinary: Bladder wall thickness is normal. No definite cephalization of contrast material from the urinary bladder is noted. No definite fistulous connection with either small or large loops of b owel identified. Nodes and vessels: No iliac, pelvic, or inguinal adenopathy by size criteria. Iliac vessels demonst rate normal size. Bones: No suspicious bony lesions. Pelvic ring and hip joints appear intact. Miscellaneous: No inguinal hernias. IMPRESSION: 1. Status post left lower quadrant colostomy and placement of presacral, pelvic surgical drain. 2. No definite enterovesicular or colovesicular fistula identified. Dictated by: Marlene Palma MD, PhD on 04/11/2016 at 9:52 Approved by: Marlene Palma MD, PhD on 04/11/2016 at 17:19
[2016-04-11] MEDS: TPN Per Pharmacist XX SCH (21:00)
[2016-04-11] MEDS: Total Parenteral Nutrition 1 BAG IV SCH (21:56)
[2016-04-12 01:30] VITALS: RESP 20; O2SAT 98
[2016-04-12] MEDS: FENTANYL PCA IV PRN ×2 (02:17→14:42)
[2016-04-12 05:55] VITALS: BP 129/82; PULSE 79; RESP 20; O2SAT 98
[2016-04-12] MEDS: Dextrose 5% Lactated Ringer's 1,000 ML IV SCH (06:36)
[2016-04-12] MEDS: Pantoprazole 4 mg/mL 10 mL Inj IVPUSH SCH (07:42)
[2016-04-12] MEDS: metroNIDAZOLE Inj 500 MG in IV Premix 1 EACH IV SCH ×3 (07:44→21:46)
[2016-04-12] MEDS: Polyethylene Glycol (PEG) 17 Gm Powder PO SCH (08:30)
[2016-04-12] MEDS: Heparin 5,000 Unit/mL Inj SUBQ SCH ×3 (09:50→16:08)
[2016-04-12] MEDS: levoFLOXacin Inj 750 MG in IV Premix 1 EACH IV SCH (10:15)
[2016-04-12 11:21] LABS: BASOPHILS % (AUTO) 0.2 % (0-3); EOSINOPHILS % (AUTO) 5.1 % (0-5); MONOCYTES % (AUTO) 9.5 % (4-12); Mean Corpuscular Hemoglobin 30.1 pg (27.0-35.0); Mean Corpuscular Volume 94.6 fL (81-100); NEUTROPHILS % (AUTO) 78.5 % (40-74); Platelet Count 516 bil/L (150-400)
--- NOTE | 2016-04-12 11:22 | PCM.PNSURG ---
Subjective Date of Service: Apr 12, 2016 Date of Service: Apr 12, 2016 Visit Information: Reason for Visit Anastamotic Leak Surgery/Surgery Date Post-Op Day # 8 Date of Admission: Apr 04, 2016 at 20:13 Hospital Day #9 Subjective: Abdominal pain tolerable with PLY BANDER. Did well overnight with continuous dose of fentanyl 5 g per hour. Tolerating soft diet with no nausea, vomiting, increasing abdominal pain. Continues to feel hungry. Has not passed any more tissue or fluid per rectum. Is ambulating in the hallway. Is excited to have Hale removed. Afebrile and hemodynamically stable. Gastrointestinal: Good Appetite, Tolerating Oral Feedings, No N/V, Passing Stool (colostomy bag; 150 mL yesterday) Pain Management: PO, PLY BANDER with Basal Postop Activity: Ambulating Independently, Ambulating in Daniels Objective Vital Sign- Last 8 Hours Date Time Temp Pulse Resp B/P Pulse Ox O2 Delivery O2 Flow Rate FiO2 04/12/16 05:55 36.8 79 20 129/82 98 Room Air Intake and Output- Last 8 Hour 04/12/16 Cumulative From/Thru 07:00 04/03/16 18:08 - 04/12/16 06:54 Intake Total 600 ml 78142 ml Output Total 2020 ml 51317 ml Balance -1420 ml -479 ml Intake Oral 600 ml 2838 ml IV Total 61822 ml TPN/PPN 5019 ml Output Urine Total 2000 ml 68608 ml Stool Total 0 ml 150 ml Gastric Drainage Total 5125 ml Drainage Total 20 ml 448 ml Estimated Blood Loss 200 ml # Bowel Movements 0 General: Alert, Oriented X3, Cooperative, No Acute Distress Lungs: Clear to Auscultation Heart: Regular Rate/Rhythm Abdomen: Soft, Appropriately tender, Non-distended, Normoactive bowel tones Neuro: Normal Speech Catheters: Urethral 2 Way Hale Result Diagram: 04/11/165 04/11/165 Lab & Micro Results: CBC and CMP pending. Diagnostics: Cystogram and pelvic CT yesterday showed no fistula. 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 Other diagnoses: Status post laparoscopically assisted low anterior resection with primary anastomosis and laparoscopic takedown of splenic flexure on 03/04/2016 for stage III rectal cancer status post neoadjuvant chemoradiation therapy. 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 Continue TPN until oral intake is adequate to wean off. DC Hale today. Continue Flomax. Straight cath if necessary (PVR >300cc) Anticipate leaving ABRIL and rancho intact until just prior to discharge. Continue broad-spectrum IV antibiotics. AM labs ordered. Pain Management: Encourage use of by mouth oxycodone 10 mg every 4 hours. Try to decrease reliance on PLY BANDER. VTE Prophylaxis: Sub-Q Heparin (Unfractionated) Resuscitation Status: CPR: Attempt Resuscitation Stephanie Lezama PA-C Apr 12, 2016 11:21
[2016-04-12 11:47] LABS: Magnesium 2.2 mg/dL (1.6-2.6); Phosphorus 3.8 mg/dL (2.5-4.9)
--- NOTE | 2016-04-12 12:08 | PCM.PHAPRO ---
Progress PARENTERAL NUTRITION ORDERS 6 12-Apr-16 Standard Hang Time: 2100 Substrates Total kcal: 2027 AMINO ACIDS 110 g DEXTROSE 320 g Total Volume (mL): 1900 LIPIDS 50 g Sterile Water for Injection QS mL To Infuse Over (hrs): 24 Total Volume 1900 mL At at a rate of (mL/hr): 79 Additives Sodium Chloride 90 mEq "typical" daily requirements Sodium Acetate mEq Sodium 50-120mEq Potassium Chloride 40 mEq Potassium 60-120mEq Potassium Phosphate 10 mEq Phosphate 20-40mEq Calcium Gluconate mEq Magnesium 8-32mEq Magnesium Sulfate 8 mEq Calcium 9-22mEq Acetate* 80-120mEq Chloride* 80-120mEq Regular Insulin units *Depending on acid-base status Famotidine 40 mg Multivitamins 1 std dose Insulin Regimen Trace Elements 1 std dose none Thiamine mg Regular Low Intensity Subcut Folic Acid mg Regular Medium Intensity Subcut Ascorbic Acid mg Regular High Intensity Subcut Regular Insulin Infusion Other: Special Instructions: To be infused via central line only. For delay or inturruption of TPN contact the pharmacist for alternative replacement solution. Josemanuel Tompkins Apr 12, 2016 12:08
[2016-04-12 14:45] VITALS: RESP 16; O2SAT 96
[2016-04-12 16:00] VITALS: BP 121/83; PULSE 76; RESP 18; O2SAT 99
[2016-04-12] MEDS: 0.9% Sodium Chloride 250 ML IV SCH (18:17)
[2016-04-12] MEDS: TPN Per Pharmacist XX SCH (21:00)
[2016-04-12] MEDS: Total Parenteral Nutrition 1 BAG IV SCH (21:14)
[2016-04-12 21:25] VITALS: BP 115/73; PULSE 69; RESP 20; O2SAT 99
[2016-04-13] MEDS: Heparin 5,000 Unit/mL Inj SUBQ SCH ×2 (01:04→07:51)
[2016-04-13] MEDS: metroNIDAZOLE Inj 500 MG in IV Premix 1 EACH IV SCH (05:51)
[2016-04-13 06:15] LABS: BASOPHILS % (AUTO) 0.3 % (0-3); EOSINOPHILS % (AUTO) 7.4 % (0-5); MONOCYTES % (AUTO) 12.8 % (4-12); Mean Corpuscular Hemoglobin 30.5 pg (27.0-35.0); Mean Corpuscular Volume 96.3 fL (81-100); NEUTROPHILS % (AUTO) 68.8 % (40-74); Platelet Count 488 bil/L (150-400)
[2016-04-13 06:20] VITALS: BP 126/77; PULSE 72; RESP 20; O2SAT 97
[2016-04-13] MEDS: Dextrose 5% Lactated Ringer's 1,000 ML IV SCH (06:36)
[2016-04-13 06:40] LABS: Magnesium 2.2 mg/dL (1.6-2.6); Phosphorus 3.9 mg/dL (2.5-4.9)
[2016-04-13] MEDS: Pantoprazole 4 mg/mL 10 mL Inj IVPUSH SCH (07:48)
[2016-04-13] MEDS: levoFLOXacin Inj 750 MG in IV Premix 1 EACH IV SCH (07:50)
[2016-04-13 07:57] VITALS: RESP 16; O2SAT 96
[2016-04-13] MEDS: Polyethylene Glycol (PEG) 17 Gm Powder PO SCH (08:30)
[2016-04-13 09:14] VITALS: BP 131/78; PULSE 83; O2SAT 98
--- NOTE | 2016-04-13 09:37 | PCM.CONPHA ---
Objective Vital Signs Date Time Temp Pulse Resp B/P Pulse Ox O2 Delivery O2 Flow Rate FiO2 04/13/16 09:14 36.8 83 131/78 98 Room Air 04/13/16 07:57 16 96 04/13/16 06:20 36.4 72 20 126/77 97 Room Air 04/12/16 21:25 36.6 69 20 115/73 99 Room Air 04/12/16 16:00 36.5 76 18 121/83 99 Room Air 04/12/16 14:45 16 96 Intake and Output 04/11/16 04/12/16 04/13/16 00:00 00:00 00:00 Intake Total 1438 ml 5688 ml 1959 ml Output Total 2100 ml 3165 ml 3280 ml Balance -662 ml 2523 ml -1321 ml Weight (Kilograms): 84.500 Height (Feet): 5 Height (Inches): 7.00 Test 04/04/16 18:20 04/13/16 05:03 Urine Color Yellow (YELLOW) Urine Appearance Clear (CLEAR,HAZY) Urine pH 7.5 (5.0-8.0) Urine Specific [place] 1.015 (1.003-1.035) Urine Protein Negativemg/dL (NEG,TRACE) Urine Glucose (UA) Negativemg/dL (NEGATIVE) Urine Ketones Negativemg/dL (NEGATIVE) Urine Occult Blood Negative (NEGATIVE) Urine Nitrite Negative (NEGATIVE) Urine Bilirubin Negative (NEGATIVE) Urine Urobilinogen Normalmg/dL (NORMAL) Urine Leukocyte Esterase Negative (NEGATIVE) Urine RBC 0-2/hpf (0-2) Urine WBC 0-5/hpf (0-5) Urine Epithelial Cells None/hpf (NONE-MOD) Urine Crystals None seen (NONE SEEN) Urine Bacteria Few/hpf (NONE-FEW) Urine Hyaline Casts None/lpf (NONE) Urine Granular Casts None seen (NONE SEEN) Urine Waxy Casts None seen (NONE SEEN) Urine Red Blood Cell Casts None seen (NONE SEEN) Urine White Blood Cell Casts None seen (NONE SEEN) Urine Mucus None seen (None Seen) Urine Trichomonas None seen (NONE SEEN) Urine Yeast None (NONE SEEN) Urinalysis Comment None Urine Culture Reflexed Not indicated White Blood Count 8.7th/mm3 (3.8-10.1) Red Blood Count 2.95mil/mm3 (4.40-5.80) Hemoglobin 9.0g/dL (13.8-17.2) Hematocrit 28.4% (41.0-50.0) Mean Corpuscular Volume 96.3fL (81-100) Mean Corpuscular Hemoglobin 30.5pg (27.0-35.0) Mean Corpuscular Hemoglobin Concent 31.7% (32.0-37.0) Red Cell Distribution Width 15.2% (12.3-15.4) Platelet Count 488bil/L (150-400) Neutrophils (%) (Auto) 68.8% (40-74) Lymphocytes (%) (Auto) 9.9% (14-46) Monocytes (%) (Auto) 12.8% (4-12) Eosinophils (%) (Auto) 7.4% (0-5) Basophils (%) (Auto) 0.3% (0-3) Sodium Level 138mEq/L (134-144) Potassium Level 4.3mEq/L (3.5-5.2) Chloride Level 104mEq/L (97-108) Carbon Dioxide Level 23mmol/L (18-29) Blood Urea Nitrogen 16mg/dL (6-24) Creatinine 0.67mg/dL (0.76-1.27) Estimat Glomerular Filtration Rate 133mL/min (>59) Glucose Level 102mg/dL (60-99) Calcium Level 8.9mg/dL (8.5-10.1) Phosphorus Level 3.9mg/dL (2.5-4.9) Magnesium Level 2.2mg/dL (1.6-2.6) Total Bilirubin 0.2mg/dL (0.0-1.2) Aspartate Amino Transf (AST/SGOT) 11U/L (0-50) Alanine Aminotransferase (ALT/SGPT) 11U/L (0-44) Alkaline Phosphatase 29U/L (25-150) Total Protein 6.3g/dL (6.4-8.4) Albumin 3.1g/dL (3.4-5.0) Assessment/Plan Assessment/Plan PARENTERAL NUTRITION ORDERS 7 - Standard Hang Time: 2100 Substrates Total kcal: 1014 AMINO ACIDS 55 g DEXTROSE 160 g Total Volume (mL): 1900 LIPIDS 25 g Sterile Water for Injection QS mL To Infuse Over (hrs): 24 Total Volume 1900 mL At at a rate of (mL/hr): 79 Additives Sodium Chloride 90 mEq "typical" daily requirements Sodium Acetate mEq Sodium 50-120mEq Potassium Chloride 40 mEq Potassium 60-120mEq Potassium Phosphate 10 mEq Phosphate 20-40mEq Calcium Gluconate mEq Magnesium 8-32mEq Magnesium Sulfate 8 mEq Calcium 9-22mEq Acetate* 80-120mEq Chloride* 80-120mEq Regular Insulin units *Depending on acid-base status Famotidine 40 mg Multivitamins 1 std dose Insulin Regimen Trace Elements 1 std dose none Thiamine mg Regular Low Intensity Subcut Folic Acid mg Regular Medium Intensity Subcut Ascorbic Acid mg Regular High Intensity Subcut Regular Insulin Infusion Other: Special Instructions: To be infused via central line only. For delay or inturruption of TPN contact the pharmacist for alternative replacement solution. Macronutrients reduced per nutrition. Josemanuel Tompkins Apr 13, 2016 09:37
--- NOTE | 2016-04-13 10:24 | PCM.PNSURG ---
Subjective Date of Service: Apr 13, 2016 Date of Service: Apr 13, 2016 Visit Information: Reason for Visit Anastamotic Leak Surgery/Surgery Date Post-Op Day # 9 Date of Admission: Apr 04, 2016 at 20:13 Hospital Day #10 Subjective: Afebrile overnight, hemodynamically stable. Patient seen sitting up in bed. Doing well. Has not been using [facility] SURGE[facility] since midnight. Pain well-controlled on oral oxycodone. Tolerating full trays of food. No nausea, vomiting, or abdominal pain after eating. States he ate a large meal last night and did quite well. Doing well with Hale discontinued. Has not passed any more tissue or fluid per rectum. Wishes to go home today. Feels comfortable with independent ostomy care. Postop General: No Complaints Gastrointestinal: Good Appetite, Tolerating Oral Feedings, No N/V, Passing Flatus (per Colostomy bag), Passing Stool (per colostomy bag, states he just emptied the bag which was half full.) Pain Management: PO (oxycodone 10 mg) Postop Activity: Ambulating Independently Objective Vital Sign- Last 8 Hours Date Time Temp Pulse Resp B/P Pulse Ox O2 Delivery O2 Flow Rate FiO2 04/13/16 09:14 36.8 83 131/78 98 Room Air 04/13/16 07:57 16 96 04/13/16 06:20 36.4 72 20 126/77 97 Room Air Intake and Output- Last 8 Hour 04/13/16 Cumulative From/Thru 07:00 04/03/16 18:08 - 04/13/16 06:22 Intake Total 3052 ml 84778 ml Output Total 1605 ml 04806 ml Balance 1447 ml 1067 ml Intake Oral 600 ml 3838 ml IV Total 672 ml 28206 ml TPN/PPN 1780 ml 6799 ml Output Urine Total 1600 ml 25164 ml Stool Total 0 ml 150 ml Gastric Drainage Total 5125 ml Drainage Total 5 ml 463 ml Estimated Blood Loss 200 ml # Voids 5 5 # Bowel Movements 0 General: Alert, Oriented X3, Cooperative, No Acute Distress Lungs: Clear to Auscultation Heart: Regular Rate/Rhythm Abdomen: Soft, Non-tender, Non-distended, Normoactive bowel tones, Ostomy pink & viable SURGICAL WOUND : Wound General Appearence: Tuyet, Intact, Well Approximated, Incision Healing, No Erythema, No Discharge Wound Drainage Type: ABRIL Drain #1 (5 mL of serosanguineous drainage today) Extremities: Warm, Thigh&Calf Soft/Nontender, No Cord to Palpation Neuro: Normal Speech Catheters: None Result Diagram: 04/13/1650204/13/16 050 Assessment & Plan Impression Primary diagnoses: Postop day #9 s/p Rigid proctoscopy, exploratory laparotomy, lysis of adhesions , 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 Other diagnoses: Status post laparoscopically assisted low anterior resection with primary anastomosis and laparoscopic takedown of splenic flexure on 03/04/2016 for stage III rectal cancer status post neoadjuvant chemoradiation therapy. 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 DC ABRIL drain. DC TPN, as oral intake is adequate. Discharge home today. Continue oral antibiotics through 04/18/2016 for a total course of 14 days. Follow-up as outpatient with wound care clinic for ostomy care. Follow-up with Dr. Ovalles Thursday 1:15 PM. Reviewed with patient and warning signs to watch for, and expected postoperative course. Discussed in detail discharge medications. Pain Management: By mouth oxycodone VTE Prophylaxis: Sub-Q Heparin (Unfractionated) (inpatient), Sub-Q Enoxaparin ( at home on discharge) Resuscitation Status: CPR: Attempt Resuscitation copies to: Fuad Ovalles MD; Marcial Rodríguez MD, Danielle B PA-C Apr 13, 2016 10:24
--- NOTE | 2016-04-13 10:42 | PCM.DISURG ---
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 Other diagnoses: Status post laparoscopically assisted low anterior resection with primary anastomosis and laparoscopic takedown of splenic flexure on 03/04/2016 for stage III rectal cancer status post neoadjuvant chemoradiation therapy. 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 Replace gauze as needed. Hygiene: May shower Follow Up Plan Follow Up Plan Follow-up appointment with Dr. Ovalles at the [facility] outpatient general surgery clinic on 04/16/2016 at 1:15 PM. Please schedule a follow-up appointment with Dr. Rodríguez in 2 weeks. Call wound clinic on 04/14/2016 for a follow-up appointment for ostomy care. Call your provider for: Fever, Chills, Shortness of breath, Increasing abdominal pain, Nausea, Vomiting, Wound redness, Increasing wound pain, Discharge @ incision, pus discharge Stephanie Lezama PA-C Apr 13, 2016 10:42
[2016-04-13] MEDS ORDERED: LEVO750T39 PO (11:02)
[2016-04-13] MEDS ORDERED: Acetaminophen PO (11:02)
[2016-04-13] MEDS ORDERED: LORA0.5T PO (11:02)
[2016-04-13] MEDS ORDERED: OXYC5TAB72 PO (11:02)
[2016-04-13] MEDS ORDERED: TAMS0.4C98 PO (11:02)
[2016-04-13] MEDS ORDERED: METR500T19 PO (11:02)
[2016-04-13] MEDS ORDERED: ENOX40DI8 SUBQ (11:02)
[2016-04-13] MEDS ORDERED: PANT40TA3 PO (11:02)
--- NOTE | 2016-04-13 11:48 | PCM.DC.SUR ---
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 Other diagnoses: Status post laparoscopically assisted low anterior resection with primary anastomosis and laparoscopic takedown of splenic flexure on 03/04/2016 for stage III rectal cancer status post neoadjuvant chemoradiation therapy. 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 Garcia on March 04. The anastomosis was tested for leak with air intraoperatively, which was negative. Postoperatively, he did not do well. He had minimal bowel movement in the hospital, but was passing gas. At home, he had to use both hands inside the anus to manipulate tissue to have small amounts of bowel movement. He also developed pneumaturia. Urine culture was negative. He had a leukocytosis of 18,000. He was having low-grade fevers and severe pelvic pain. He had a CT scan of the abdomen and pelvis, which showed free intra-abdominal air, significant bladder air, and several intraloop gas and fluid collections. After discussion of risks and benefits, he agreed to proceed with exploratory laparotomy, possible ileostomy, possible colostomy. Consultants: None, although the patient was also seen by his oncologist, Dr. Marcial Rodríguez. Hospital Course: 50-year-old man who was diagnosed with rectal cancer, and was treated with neoadjuvant chemoradiotherapy, and then underwent low anterior resection with anastomosis by Dr. Garcia on March 04. The anastomosis was tested for leak with air intraoperatively, which was negative. Postoperatively, he did not do well. He had minimal bowel movement in the hospital, but was passing gas. At home, he had to use both hands inside the anus to manipulate tissue to have small amounts of bowel movement. He also developed pneumaturia. Urine culture was negative. He had a leukocytosis of 18,000. He was having low-grade fevers and severe pelvic pain. He had a CT scan of the abdomen and pelvis, which showed free intra-abdominal air, significant bladder air, and several intraloop gas and fluid collections. After discussion of risks and benefits, he agreed to proceed with exploratory laparotomy, possible ileostomy, possible colostomy which was performed by Dr. Fuad Ovalles on 04/04/2016. He tolerated the procedure well and there were no intraoperative complications. On his first postsurgical day the patient was seen by Dr. Manny Lopez: SUBJECTIVE: Postop day one. The patient is sleeping but his tells me that he is feeling well. He is afebrile, not tachycardic, with a normal blood pressure. His drain output has been 160 since the operation. His nasogastric tube remains in place but is not putting much out. Hale is in place and per Dr. Ovalles' note will stay through the weekend. The patient is not examined as he is asleep. His white count is 12.9, his hematocrit is 25.6, electrolytes are normal. Albumin is 2.8. IMPRESSION AND PLAN: Doing well. I will come back later when he is awake and examine him. For now we will leave his NG tube in. Continue him on the levofloxacin and metronidazole that haveu been ordered by Dr. Ovalles. On his second postsurgical day, the patient was seen by Dr. Manny Lopez: SUBJECTIVE: The patient is postop day two, end-colostomy with pelvic cleanout. He remains afebrile, hemodynamically stable. He, and particularly his , are quite anxious about possible things going wrong. He reports some muscle spasm in his right leg and is asking to be medicated for this. He feels that this is related to his chronic back problems that were exacerbated at his last operation during the hospitalization. His nasogastric tube is not putting that much out, but he does not have much output in his ostomy either. OBJECTIVE: His abdomen is soft, mildly distended. Incision is in good shape. LABORATORY DATA: There are no labs today. IMPRESSION AND PLAN: Doing well. I should mention that his Maikol-Caruso drainage is serous and was 170 over the previous 24 hours. There are no signs of complications. He did have a little bit of blood late this morning in his NG tube and I have added pantoprazole to his H2 ulisses. I have reviewed his current anatomical setup with his , discussed options in terms of pulling the NG tube or not, and per his preference we will leave the NG tube in place rather than risk further distention and/or having to have it replaced. I will order some IV Ativan p.r.n. for his muscle spasms. Also his pain control could be better and I will add a small continuous dose through his fentanyl CREDIT CONTROL ADMINISTRATOR. We talked about having a longer-acting narcotic that is not quite so fat-soluble but he and his say that he did not tolerate either Dilaudid or morphine. I will leave him on the fentanyl CREDIT CONTROL ADMINISTRATOR with 10 mcg/hour continuous rate. On his third postsurgical day, the patient was seen by Stephanie Lezama PA-C: The fentanyl CREDIT CONTROL ADMINISTRATOR was keeping him comfortable, he had had no nausea. The NG tube was in place. The bloody output had been less than the prior day. He was afebrile and hemodynamically stable. His abdomen was appropriately tender and nondistended. There was scant amount of sanguinous fluid in his colostomy bag. His incision showed no signs of infection. His ABRIL drain had 130 mL of serosanguineous drainage. Urine in the Hale catheter was clear and yellow. H& H remained stable with a normal white count. Nothing by mouth status was continued and the NG tube remained in place. On his fourth postsurgical day the patient was seen by Dr. Fuad Ovalles: SUBJECTIVE: The patient is seen in followup. He continues to feel a little bit better. Today, he feels hungry and thirsty. His pain is mostly controlled. He has not had any nausea. He has not had any anal drainage. He does think there has been a tiny amount of flatus into his colostomy. OBJECTIVE: Temperature 36.7, pulse 82, blood pressure 152/88, saturation 97% on room air. General: He is sitting up in bed, in no acute distress. Chest: Clear. Heart: Regular rate and rhythm. No murmurs. Abdomen is flat and soft. His ABRIL drain has serosanguineous drainage, slightly turbid, 15 cc overnight. His colostomy is intact with no significant output. There is no erythema of the abdominal wall. He is minimally tender to palpation. The Hale catheter has clear yellow urine. Nasogastric tube has a light green drainage. NG output overnight was 400 cc, yesterday was 202 cc. LABORATORIES: White count is 7.9, hematocrit 26.1, platelets 569. Creatinine 0.62, glucose 102, albumin 2.9. ASSESSMENT AND PLAN: A 50-year-old man with anastomotic leak after low anterior resection for rectal cancer following neoadjuvant chemoradiotherapy. He is now postoperative day four, status post takedown of his anastomosis, descending colostomy, small bowel resection with anastomosis, lysis of adhesions, drainage of pelvic abscess. He is doing well clinically. I am not sure how long it will take for him to be able to eat, but since he is malnourished with an albumin of 2.9 and has not had meaningful protein calorie intake recently, we will start TPN today. His nasogastric tube probably can come out soon, but will wait and see what the output is during the day and make a decision about that later today. CREDIT CONTROL ADMINISTRATOR will be continued. Broad-spectrum antibiotics will be continued. Hale catheter should be continued for seven days. On his fifth postsurgical day, the patient was seen by Dr. Fuad Ovalles: SUBJECTIVE: Salvador is seen in followup. He continues to feel better. He has no nausea. He is passing some flatus into his colostomy but has not had stool yet. He is complaining of some Hale catheter discomfort and is not sure if his Hale is draining well. OBJECTIVE: Temperature 36.7, pulse 76, blood pressure 130/82, saturation 84% on room air. General: He is resting in bed in no acute distress. HEENT: Nasogastric tube has small amounts of bilious fluid. Chest is clear. Heart: Regular rate and rhythm. No murmurs. Abdomen is soft and flat. His incision is clean with no erythema. His ABRIL drain has serosanguineous drainage. The colostomy is pink with no significant output in the appliance. Bowel tones are present. : Hale catheter has fairly clear yellow urine. ASSESSMENT/PLAN: A 50-year-old man with anastomotic leak after low anterior resection for rectal cancer following neoadjuvant chemoradiotherapy. He is now status post end colostomy, small bowel resection with anastomosis, takedown of bladder fistula. He is doing well clinically. TPN was started last night. I have removed his nasogastric tube this morning. He will be kept n.p.o., but allowed to have ice chips today. TPN should be continued. We will continue the CREDIT CONTROL ADMINISTRATOR for now until he has some return of bowel function. The Hale catheter will remain for at least seven days. On his sixth postsurgical day the patient was seen by Dr. Fuad Ovalles: SUBJECTIVE: The patient is seen in followup. He has had a fair amount of flatus through the colostomy over the past 24 hours, but no significant stool. He has no nausea and is tolerating ice chips. He is hungry. His main complaint is bladder discomfort. OBJECTIVE: Temperature 36.4, pulse 80, blood pressure 136/80, saturation 97% on room air. General: He is resting in bed in no acute distress. Chest is clear. Heart: Regular rate and rhythm. Abdomen is soft, nondistended, minimally tender. His incision is clean with no erythema, no drainage. The ABRIL drain has scant serosanguineous drainage. The colostomy has minimal brown liquid in the appliance. Hale catheter has clear yellow urine. LABORATORIES: Creatinine 0.66, glucose 104. ASSESSMENT AND PLAN: A 50-year-old man status post exploratory laparotomy for anastomotic leak with pelvic abscess, now status post small bowel resection with anastomosis and descending colostomy. He is doing well clinically. He will be placed on a clear liquid diet today. The Hale catheter will remain in place for now. Because of his possible bladder fistula, I will arrange for a cystogram through the Hale catheter tomorrow prior to Hale catheter removal. ABRIL drain should be removed just before he leaves the hospital, but we will leave it in place for now. TPN and broad-spectrum antibiotics should be continued. His diet will be slowly advanced over the next several days. If he does well, I anticipate he will be ready for discharge around Thursday or Thursday. Tuyet should be removed from his incision before he leaves the hospital. On his seventh postsurgical day the patient was seen by Stephanie Lezama PA-C: His pain had been well controlled overnight using the fentanyl CREDIT CONTROL ADMINISTRATOR. He was tolerating a clear liquid diet with no nausea or vomiting. He had passed a small amount of tissue from his rectum with some blood smeared without any paola bleeding from his rectum. He had had 2 episodes of soft brown stool in his colostomy bag. He was ambulating extensively independently in the hallway. His abdominal exam remained benign. There were no signs of infection following his incision. He continued to have minimal drainage from his ABRIL drain. There was clear yellow fluid in the Hale catheter. He remained afebrile and hemodynamically stable with a stable H&H and a normal white blood cell count. Pathology report was reviewed with him and his . A cystogram as well as a pelvic CT showed no evidence of bladder fistula. His diet was advanced to full liquids through the day. He had no nausea or vomiting with that and he was therefore advanced to soft diet for dinner. TPN was continued. Broad-spectrum IV antibiotics continued. On his eighth postsurgical day, the patient was seen by Stephanie Lezama PA-C: He is tolerating a soft diet with no nausea, vomiting, or increasing abdominal pain. He had a good appetite. He had no more tissue passing per rectum. His Hale was removed and he had no difficulties voiding. He remained afebrile and hemodynamically stable. He was able to wean off of the CREDIT CONTROL ADMINISTRATOR and transitioned to oral oxycodone with adequate pain control. His incision showed no signs of infection and ABRIL drain output remained minimal. IV antibiotics continued. On his ninth postsurgical day, the patient was discharged home. He remains afebrile and hemodynamically stable with a normal white count. He will continue to take antibiotics, on a by mouth basis through 04/18/2016, to complete a total 14 day course. He will use Lovenox for DVT prophylaxis. His is experienced in administering this to him. He is tolerating adequate amounts of oral intake. He has no nausea, vomiting, or abdominal pain after eating. His pain is well-controlled on oral oxycodone. He is voiding without difficulty. He has undergone training and ostomy care, and will follow up with the wound clinic. His ABRIL drain and tuyet are removed prior to discharge. A long conversation was held reviewing the expected postoperative course and signs of concern to watch for. Pathology: FINAL DIAGNOSIS: 1.SMALL BOWEL: SEGMENT OF SMALL BOWEL (3.0 CM RESECTED LENGTH) WITH MODERATE ACTIVE SEROSAL INFLAMMATION. NO EVIDENCE OF MALIGNANCY. 2.DESCENDING COLON: SEGMENT OF LARGE BOWEL (11.0 CM RESECTED LENGTH) WITH MARKED ACTIVE SEROSAL INFLAMMATION. NO EVIDENCE OF MALIGNANCY. Disposition: The patient was discharged home, tolerating a soft diet with adequate oral intake. His TPN was discontinued. His tuyet and ABRIL drain had been pulled. He is able to void comfortably. He has no nausea, vomiting, and his postsurgical abdominal pain is well controlled on oral medication. He will continue oral antibiotics for a total of 14 days. DVT prophylaxis will be accomplished with daily Lovenox injections for 3 weeks. Follow-up Plan: Follow-up with wound care this week for ostomy care. Follow-up with Dr. Fuad Ovalles at the [facility] general surgery outpatient clinic 04/16/2016 at 1:15 PM. Follow-up with Dr. Marcial Rodríguez in 2 weeks. ([Acetaminophen]) 325 MG TABLET 325-650 MG PO Q4H PRN PRN For Mild Pain or Fever Atenolol (Atenolol) 25 Mg Tablet 25 MG PO DAILY (Reported) Enoxaparin Sodium (Enoxaparin Sodium) 40 Mg/0.4 Ml Syringe 40 MG SUBQ DAILY Fentanyl 12.5 mcg/hr Patch (Fentanyl 12.5 mcg/hr Patch) 1 Each Patch.td72 25 MCG TRANSDERM Q3D (Reported) Levofloxacin (Levofloxacin) 750 Mg Tablet 750 MG PO DAILY Lorazepam (Lorazepam) 0.5 Mg Tablet 0.5 MG PO up to TID PRN PRN For Anxiety Metronidazole (Metronidazole) 500 Mg Tablet 500 MG PO TID Pantoprazole DR (Pantoprazole DR) 40 Mg Tablet.dr 40 MG PO DAILY Tamsulosin (Flomax) 0.4 Mg Capsule 0.4 MG PO DAILY oxyCODONE (oxyCODONE) 5 Mg Tablet 10 MG PO Q4HWA PRN PRN For Moderate Pain copies to: Marcial Rodríguez MD, Danielle B PA-C Apr 13, 2016 11:47
[2016-05-08] MEDS ORDERED: ATEN25TA PO (11:04)
[2016-05-08] MEDS ORDERED: TRAZ-115 PO (11:04)
[2016-05-08] MEDS ORDERED: ONDA-54 PO (11:04)
[2016-05-08] MEDS ORDERED: LEVO750T39 PO (11:04)
[2016-05-08] MEDS ORDERED: METR500T19 PO (11:04)
[2016-05-19] MEDS ORDERED: [UNRECOGNIZED DRUG - CODE] PO (10:42)
[2016-05-19] MEDS ORDERED: CALC500T9 PO (10:42)
[2016-05-29] MEDS ORDERED: LEVO500T79 PO (09:55)
[2016-05-29] MEDS ORDERED: DEX1 PO (09:55)
[2016-08-19] MEDS ORDERED: TADA20TA PO (08:08)
[2016-08-19] MEDS ORDERED: METR500T19 PO (08:08)
[2016-08-19] MEDS ORDERED: [UNRECOGNIZED DRUG - CODE] IV (08:08)
[2016-08-19] MEDS ORDERED: ACET325T51 PO (08:08)
[2016-08-19] MEDS ORDERED: CAPE500T15 PO (08:08)
== END 2016-04-13 11:55 | disposition home or self-care (01) | DRG 330 ==
LOC: SAS 12:39 → OSC 20:13
PROVIDERS: ADMIT Student in an Organized Health Care Education/Training Program; ATTEND Student in an Organized Health Care Education/Training Program
PROC: 0DB80ZZ Excision of Small Intestine, Open Approach (ICD-10-PCS; 2016-04-04)
PROC: 0DBM0ZZ Excision of Descending Colon, Open Approach (ICD-10-PCS; 2016-04-04)
PROC: 0DJD8ZZ Inspection of Lower Intestinal Tract, Via Natural or Artificial Opening Endoscopic (ICD-10-PCS; 2016-04-04)
PROC: 0D1M0Z4 Bypass Descending Colon to Cutaneous, Open Approach (ICD-10-PCS; principal; 2016-04-04 14:30)
PROC: 3E0336Z Introduction of Nutritional Substance into Peripheral Vein, Percutaneous Approach (ICD-10-PCS; 2016-04-08)
DX: K91.89 Other postprocedural complications and disorders of digestive system (principal); C20 Malignant neoplasm of rectum; D68.69 Other thrombophilia; I10 Essential (primary) hypertension; Z92.21 Personal history of antineoplastic chemotherapy

== ENCOUNTER 2016-04-13 13:04 | Emergency (ER) | payer OTHER ==
[~2016-04-13] VITALS: Ht 170.2 cm; Wt 86.4 kg
[~2016-04-13 13:04] MED LIST changes: +Acetaminophen PO; -Dexamethasone 4 mg/mL Inj ONE; +ENOX40DI8 SUBQ; -Glycopyrrolate 0.2 mg/mL 5 mL Inj ONE; +LEVO750T39 PO; +LORA0.5T PO; +METR500T19 PO; -Neostigmine 1 mg/mL 5 mL Inj ONE; +OXYC5TAB72 PO; -Ondansetron 2 mg/mL 2 mL Inj ONE; +PANT40TA3 PO; -Propofol 10,000 mCg/mL 20 mL Inj ONE; -Rocuronium 10 mg/mL 5 mL Inj ONE; -Succinylcholine Chloride 20 mg/mL 5 mL Inj ONE; +TAMS0.4C98 PO
--- NOTE | 2016-04-13 13:07 | ED.REPORT ---
HPI-General Illness Date of Service Apr 13, 2016 ED Provider: Dr. Mickey Mena MD A 50 year old male with a history of colon cancer and rectal cancer presents to the ED via EMS after a syncopal episode that occurred at 1100 this morning. Patient was admitted for a colorectal anastomotic dehiscence with pelvic abscess and a possible bowel fistula on 04/04 and was discharged at 1030 this morning. Patient received an exploratory laparotomy and bowel resection. reports that they went to flower picker his prescription and as they were walking the patient suddenly began to experience chills, diaphoresis, dizziness, nausea, vomiting and lightheadedness. She reports that just prior to the syncopal episode, the patient noticed discharge from his surgical drain. He denies chest pain or SOB. Prior to this admission, the patient was previously admitted on for an anterior resection with anastomosis by Dr. Garcia. Nursing Notes Stated Complaint: SYNCOPE Nursing Notes Reviewed: Yes Allergies: Coded Allergies: hydromorphone (Verified Allergy, Severe, BURNING ON SKIN. , 04/04/16) "SKIN FEELS LIKE IS ON FIRE" No Known Drug Allergies (Verified Allergy, Unknown, 03/03/16) Scheduled Atenolol (Atenolol) 25 Mg Tablet 25 MG PO DAILY Enoxaparin Sodium (Enoxaparin Sodium) 40 Mg/0.4 Ml Syringe 40 MG SUBQ DAILY Fentanyl 12.5 mcg/hr Patch (Fentanyl 12.5 mcg/hr Patch) 1 Each Patch.td72 25 MCG TRANSDERM Q3D Levofloxacin (Levofloxacin) 750 Mg Tablet 750 MG PO DAILY Metronidazole (Metronidazole) 500 Mg Tablet 500 MG PO TID Pantoprazole DR (Pantoprazole DR) 40 Mg Tablet.dr 40 MG PO DAILY Tamsulosin (Flomax) 0.4 Mg Capsule 0.4 MG PO DAILY Scheduled PRN ([Acetaminophen]) 325 MG TABLET 325-650 MG PO Q4H PRN PRN For Mild Pain or Fever Lorazepam (Lorazepam) 0.5 Mg Tablet 0.5 MG PO up to TID PRN PRN For Anxiety oxyCODONE (oxyCODONE) 5 Mg Tablet 10 MG PO Q4HWA PRN PRN For Moderate Pain General Time Seen by MD: 13:06 Chief Complaint Other (Syncope) Hx Obtained From: Patient, Other family... (Mother) Arrived By: Ambulance Sudden in Onset?: Yes Onset Occurred: 5 - 8 hours ago (1100) Symptom Duration: 1 - 15 minutes Location: : Abdomen Quality: Painful Radiation: : Does not radiate Severity: Current: Mild Severity: Maximum: Mild Associated with: Reports: Dizziness, Nausea, Syncope, Vomiting, Weakness, Denies: Fever Pertinent Negative: Pt denies other symptoms Recent Healthcare: Recent doctor visit, Recent hospitalization Past Medical History Past Medical History Notes: Dr. Fuad GUARDADO Past Medical History Rectal cancer Colon cancer Anxiety Reports: Hypertension Reports: Depression Past Surgical History Colorectal anastomotic dehiscence Exploratory laparotomy Bowel Anterior resection with anastomosis Smoking History Current Every Day Smoker Social History Other Social History: Good social support, , Local resident Ambulatory Status Independent Review of Systems Pt reports discharge from drained Full Review of Systems Constitutional: Reports: Chills, Denies: Fever Respiratory: Denies: Shortness of breath Cardiovascular: Denies: Chest pain GI: Reports: Abdominal pain, Nausea, Vomiting Neurologic: Reports: Change LOC, Dizziness, Lightheaded, Syncope Complete sys rev & neg: except as marked. Physical Exam Vital Signs Vital Signs Date Time Temp Pulse Resp B/P Pulse Ox O2 Delivery O2 Flow Rate FiO2 04/13/16 15:19 79 18 111/65 100 Room Air 04/13/16 13:16 36.3 78 15 98/68 99 Room Air Initial VS: Reviewed Head / Eyes: Atraumatic, Normocephalic, PERRL Extremities: Vascular intact, Neuro intact, No swelling, No tenderness Neurologic: Alert, Oriented, Nonfocal Psychiatric: Mood/affect normal, Behavior normal, Normal thought content General/Constitutional: Awake, Alert Respiratory / Chest: Atraumatic, Breath sounds NL, Breath sounds = bilat Cardiovascular: Heart rate NL, Regular rhythm, Heart sounds NL, No gallop, No murmurs, No rubs Abdomen: Atraumatic, Soft, BS normoactive ABDOMEN: LLQ surgical drain in place Opaque fluid draining Colostomy with stool in bag Skin: Atraumatic, Color NL, Warm, Dry, Intact Interpretation & Diagnostics Lab Results Interpretation Result Diagram: 04/13/16 1320 04/13/16 1320 Test 04/13/16 13:20 White Blood Count 11.0th/mm3 (3.8-10.1) Red Blood Count 3.05mil/mm3 (4.40-5.80) Hemoglobin 9.2g/dL (13.8-17.2) Hematocrit 29.1% (41.0-50.0) Mean Corpuscular Volume 95.4fL (81-100) Mean Corpuscular Hemoglobin 30.2pg (27.0-35.0) Mean Corpuscular Hemoglobin Concent 31.6% (32.0-37.0) Red Cell Distribution Width 15.1% (12.3-15.4) Platelet Count 522bil/L (150-400) Neutrophils (%) (Auto) 78.6% (40-74) Lymphocytes (%) (Auto) 6.2% (14-46) Monocytes (%) (Auto) 9.6% (4-12) Eosinophils (%) (Auto) 4.8% (0-5) Basophils (%) (Auto) 0.3% (0-3) Sodium Level 136mEq/L (134-144) Potassium Level 3.9mEq/L (3.5-5.2) Chloride Level 102mEq/L (97-108) Carbon Dioxide Level 20mmol/L (18-29) Blood Urea Nitrogen 20mg/dL (6-24) Creatinine 0.75mg/dL (0.76-1.27) Estimat Glomerular Filtration Rate 117mL/min (>59) Glucose Level 109mg/dL (60-99) Calcium Level 9.1mg/dL (8.5-10.1) Magnesium Level 2.0mg/dL (1.6-2.6) Total Bilirubin 0.3mg/dL (0.0-1.2) Aspartate Amino Transf (AST/SGOT) 11U/L (0-50) Alanine Aminotransferase (ALT/SGPT) 12U/L (0-44) Alkaline Phosphatase 30U/L (25-150) Troponin T < 0.010ug/L (0.0-0.011) Total Protein 6.9g/dL (6.4-8.4) Albumin 3.5g/dL (3.4-5.0) Hold Finn Top Tube Received (Received) ECG Interpretation ECG Interpretation: Sinus Rhythm Rate 75 Multiple premature ventricular responses Time: 14:10 Interpreted by: ED physician Re-Eval/Medical Decision Time of Eval: 13:39 Patient Status: Condition improved Re-Evaluation/Progress Note: Patient is rechecked. He refuses to see Dr. Garcia. Time of Eval: 15:06 Patient Status: Condition improved Re-Evaluation/Progress Note: Patient is rechecked. He refused IV fluid and and BP recovered spontaneously. Patient is eagerly awaiting discharge. All of the patient's questions are addressed. He understands and agrees with the treatment plan. Consultation #1: Referral / Consult Name: Remy Garcia MD Consulted With: Surgeon Call Returned at: 13:35 Java Web Services Developer: Agrees with eval, Agrees with plan Consultation #2: Referral / Consult Name: Stephanie Lezama PA-C Call Returned at: 13:46 Java Web Services Developer: Agrees with eval, Agrees with plan Note: DEBBY Lezama is not surprised by the drainage from the patient's ABRIL site Counseled Regarding: Diagnosis, Lab results, Need for follow-up, When/why to return to ED Discharge & Departure Departure Notes Near syncope shortly after discharge. Precipitated by discovery of leakage from ABRIL drain site. The leakage is not unexpected. Was hypotensive in field and borderline on arrival here. BP corrected spontaneoulsy, pt refused IV fluids. Now feeling better and wants to go home. No other worrisome symptoms. Primary Impression: Near syncope Disposition: Home Discharge Condition All VS Reviewed: Yes Condition: Stable Additional Instructions: In the emergency department today we performed an area, examination, labs and review of past records. Surgical PA who discharged you today was advised of today's events. Symptoms have resolved without intervention. It is likely that this was a response to stress and increased activity. If you begin to feel poorly with fever and shortness of breath increasing abdominal pain or other concerning symptoms. Return to emergency department immediately. Follow-up with surgery as planned, call them if you have questions. Continue home care as advised on discharge from the hospital earlier today. Referrals: Fuad Ovalles MD Attestation Portions of this note were transcribed by Adam Cooley. I, Dr. Mena personally performed the history, physical exam and medical decision-making; I reviewed and confirmed the accuracy of the information in the transcribed note. Signed by: Speedy Vedre, 04/13/16 1340. copies to: Stephanie Lezama PA-C; Fuad Ovalles MD, Donald L MD Apr 13, 2016 13:07 ADAM COOLEY Apr 13, 2016 13:24
[2016-04-13 13:16] VITALS: BP 98/68; PULSE 78; RESP 15; O2SAT 99
[2016-04-13] MEDS ORDERED: 0.9% Sodium Chloride 1,000 ML IV ONE (13:21)
[2016-04-13] MEDS ORDERED: Ondansetron 2 mg/mL 2 mL Inj IV PRN (13:25)
[2016-04-13 13:37] LABS: BASOPHILS % (AUTO) 0.3 % (0-3); EOSINOPHILS % (AUTO) 4.8 % (0-5); MONOCYTES % (AUTO) 9.6 % (4-12); Mean Corpuscular Hemoglobin 30.2 pg (27.0-35.0); Mean Corpuscular Volume 95.4 fL (81-100); NEUTROPHILS % (AUTO) 78.6 % (40-74); Platelet Count 522 bil/L (150-400)
[2016-04-13 14:01] LABS: TROPONIN T < 0.010 ug/L (0.0-0.011)
[2016-04-13 15:19] VITALS: BP 111/65; PULSE 79; RESP 18; O2SAT 100
[2016-05-08] MEDS ORDERED: TRAZ-115 PO (11:04)
[2016-05-08] MEDS ORDERED: METR500T19 PO (11:04)
[2016-05-08] MEDS ORDERED: LEVO750T39 PO (11:04)
[2016-05-08] MEDS ORDERED: ONDA-54 PO (11:04)
[2016-05-08] MEDS ORDERED: ATEN25TA PO (11:04)
[2016-05-19] MEDS ORDERED: [UNRECOGNIZED DRUG - CODE] PO (10:42)
[2016-05-19] MEDS ORDERED: CALC500T9 PO (10:42)
[2016-05-29] MEDS ORDERED: DEX1 PO (09:55)
[2016-05-29] MEDS ORDERED: LEVO500T79 PO (09:55)
[2016-08-19] MEDS ORDERED: [UNRECOGNIZED DRUG - CODE] IV (08:08)
[2016-08-19] MEDS ORDERED: CAPE500T15 PO (08:08)
[2016-08-19] MEDS ORDERED: METR500T19 PO (08:08)
[2016-08-19] MEDS ORDERED: ACET325T51 PO (08:08)
[2016-08-19] MEDS ORDERED: TADA20TA PO (08:08)
== END 2016-04-13 15:24 | disposition home or self-care (01) ==
LOC: SED 13:04
DX: R55 Syncope and collapse (principal); T85.598A Other mechanical complication of other gastrointestinal prosthetic devices, implants and grafts, initial encounter; Y73.2 Prosthetic and other implants, materials and accessory gastroenterology and urology devices associated with adverse incidents; Y92.238 Other place in hospital as the place of occurrence of the external cause; Y93.9 Activity, unspecified; Y99.9 Unspecified external cause status; I10 Essential (primary) hypertension; F17.200 Nicotine dependence, unspecified, uncomplicated; Z98.890 Other specified postprocedural states; Z85.038 Personal history of other malignant neoplasm of large intestine; Z85.040 Personal history of malignant carcinoid tumor of rectum; Z93.3 Colostomy status; Z98.0 Intestinal bypass and anastomosis status; Z88.5 Allergy status to narcotic agent

== ENCOUNTER 2016-08-20 12:51 | Day surgery (SDC) | payer OTHER ==
[~2016-08-20] VITALS: Ht 170.2 cm; Wt 81.8 kg
[~2016-08-20 12:51] MED LIST changes: +0.9% Sodium Chloride 1,000 ML IV SCH; +ACET325T51 PO; -ATEN25TA PO; +CALC500T9 PO; +CAPE500T15 PO; -ENOX40DI8 SUBQ; -FENT1PAT6 TRANSDERM; -HYDR-4003 PO; -LEVO750T39 PO; +ONDA-54 PO; -OXYC10TA8 PO; -PANT40TA3 PO; +Sodium Chloride LOK Flush 10 mL Syringe IV PRN; +TADA20TA PO; -TAMS0.4C98 PO; +[UNRECOGNIZED DRUG - CODE] IV; +fentaNYL-PF 50 mCg/mL 2 mL Inj IVPUSH PRN
[2016-08-20] MEDS ORDERED: QUET50TA55 PO (13:24)
[2016-08-20 13:28] VITALS: BP 136/85; PULSE 77; RESP 14; O2SAT 100
[2016-08-20 14:14] VITALS: BP 136/87; RESP 16
[2016-08-20 14:24] VITALS: BP 139/85; PULSE 72; RESP 16; O2SAT 97
[2016-08-20 14:47] VITALS: BP 134/91; PULSE 68; RESP 15; O2SAT 96
--- NOTE | 2016-08-20 15:15 | ENDO ---
[address] [address] ENDOSCOPY PROCEDURE PATIENT: HUE BUSTOS : 1965 MR#: [id number] ADMIT: 08/20/2016 JOB ID: [id number] DATE OF SERVICE: 08/20/2016 PREPROCEDURE DIAGNOSES: 1. Rectal cancer. 2. Anastomotic dehiscence. POSTPROCEDURE DIAGNOSES: 1. Rectal cancer. 2. Anastomotic dehiscence. 3. Mild diversion proctitis. PROCEDURE: Flexible proctoscopy. ENDOSCOPIST: Fuad Ovalles MD. MEDICATIONS: 1. Versed 5 mg. 2. Fentanyl 100 mcg. INDICATIONS: The patient is a 51-year-old man who had rectal cancer treated initially with neoadjuvant chemoradiation, followed by low anterior resection with anastomosis in early February 2016. 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 He has done fairly well clinically but continued to have drainage of foul-smelling, purulent material through the anus that he attributed to having a pelvic infection. He is now on adjuvant chemotherapy. After discussion of risks and benefits, he agreed to proceed with flexible proctoscopy to evaluate the nature of his anal drainage and evaluate the amount of residual rectal stump. Informed consent was obtained. FINDINGS: The length of healthy rectum to the prior staple line was 10 cm. There was a small amount of additional rectal tissue or colon tissue above that area from the prior side-to-end anastomosis. There was quite a bit of very friable-looking mucosal tissue just adjacent to the staple line that was not biopsied for fear of causing a new fistula. The remainder of the rectum was apparently normal. There was the expected amount of mucoid drainage that is consistent with a diverted rectal segment, but no active evidence of infection. DESCRIPTION OF PROCEDURE: Procedural sedation was achieved. He was connected to hemodynamic monitoring, pulse oximetry, capnography. After digital rectal exam, the PCF-H180AL colonoscope was inserted and passed under visualization. Minimal insufflation was used. At 10 cm from the anal verge, the prior staple line was encountered. On one side there was a large amount of kind of a friable mucosal tissue that looked moderately inflamed. On the other side, there was an additional small amount of rectal or colon tissue, consistent with his prior side-to-end anastomosis ending in a blind pouch. There was no evidence of fistula, and no unexpected openings into the rectum. There was a small to moderate amount of fairly thin, cuevas, foul-smelling fluid, which is consistent with a diverted rectal segment, but not consistent with any evidence of pelvic abscess or infection. There was Josette ink tattoo visible in the mid rectum from prior to his resection. Retroflexion was not performed because of the relatively short rectal segment. The scope was withdrawn and the procedure terminated. He tolerated the entire procedure well. RECOMMENDATIONS: He has mild diversion proctitis, but no evidence of fistula, and no direct evidence of pelvic abscess. His rectal segment is relatively short and I think that takedown of his colostomy with coloproctostomy would be very difficult and fairly high risk for causing functional failure with diarrhea and incontinence. Specifically, for the colonoscopic appearance today, I do not think that antibiotics are indicated and they can probably be stopped.
== END 2016-08-20 23:59 | disposition home or self-care (01) ==
LOC: END 12:51
PROVIDERS: ATTEND Student in an Organized Health Care Education/Training Program
DX: C20 Malignant neoplasm of rectum (principal); K63.89 Other specified diseases of intestine; K62.89 Other specified diseases of anus and rectum; Z92.21 Personal history of antineoplastic chemotherapy; Z92.3 Personal history of irradiation; Z93.3 Colostomy status; I10 Essential (primary) hypertension; F41.9 Anxiety disorder, unspecified; D68.59 Other primary thrombophilia; H34.9 Unspecified retinal vascular occlusion
CPT/HCPCS: 45340; G0500; J7030